=== PATIENT | male | born 1960 | race Caucasian/White ===

== ENCOUNTER 2019-02-08 10:27 | Inpatient (IN) ==
[2019-02-08] MEDS ORDERED: HYDROmorphone INJ 0.5 MG/0.5 ML SYR IV STA (11:20)
[2019-02-08] MEDS ORDERED: SODIUM CHLORIDE 0.9% 1000ML 1,000 ML IV SCH (11:30)
--- NOTE | 2019-02-08 11:32 | Emergency Department Note ---
ED Provider Note CHIEF COMPLAINT: Right leg pain/swelling, low back pain HISTORY OF PRESENTING ILLNESS: This is a 58-year-old male who presents to the emergency department by private vehicle with complaint of low back pain and right leg pain/swelling for the past 2 weeks. Patient states that he has a long-standing history of chronic back pain and previous sciatica, but states his symptoms have been worse over the past 2 weeks. He denies any falls or direct injury to the back or leg. He reports that he was seen at another hospital a week ago for the same symptoms, and was started on prednisone and a muscle relaxer and has also been taking Vicodin for his pain. He states that the pain has gotten progressively worse, now he has so much pain that it is difficult to walk, and he states "I have just been laying around on the couch for days." He states that he has intermittent tingling in the leg, which is chronic, but worse than usual. He denies numbness or weakness of the extremities, saddle paresthesias, or bowel or bladder dysfunction. His feels that his leg has gotten more swollen than usual over the past few days. He denies any chest pain, shortness of breath, dizziness or syncope. He denies any cough, hemoptysis, or URI symptoms. He does report that he has a history of a DVT in his right leg after his back surgery 10 years ago, he is prescribed Xarelto, but he states that his insurance changed and he was no longer able to afford the medication, so he stopped taking this about a month ago. He denies any other symptoms of headaches, vision changes, abdominal pain, urinary complaints, or unusual rash. REVIEW OF SYSTEMS: A complete 10 point review of systems was reviewed with the patient with pertinent positives and negatives as per history of present illness. All else were negative. PAST MEDICAL HISTORY: Degenerative disc disease, lumbar surgery, chronic low back pain, bilateral total knee arthroplasty, hypertension, hyperlipidemia, history of DVT, SRI on CPAP SOCIAL HISTORY: Lives at home with his , denies tobacco use ALLERGIES: No known allergies PHYSICAL EXAM: CONSTITUTIONAL: Pleasant and cooperative. Nontoxic-appearing and in no acute distress, but appears to be uncomfortable and in pain. Obese. HEENT: Normocephalic, atraumatic. PERRL, EOMI. Pharynx normal. NECK: Supple, full active range of motion without discomfort. RESPIRATORY: Diminished in bases, but otherwise clear to auscultation b ilaterally with no wheezing, crackles, rhonchi or stridor. Equal expansion bilaterally. CARDIOVASCULAR: Significantly tachycardic. Regular rhythm with no murmurs, rubs or gallops. Normal peripheral perfusion. Mild edema to the bilateral lower extremities, right greater than left. GASTROINTESTINAL: Soft, nontender, nondistended, obese. No palpable masses or HSM. Bowel sounds present in all quadrants. BACK: Midline tenderness to palpation of the lumbar spine at the L3-S1 level, with right-sided paraspinous muscle tenderness to palpation. No muscle spasm noted. No midline tenderness to palpation of the thoracic spine and no thoracic paraspinous muscle tenderness or spasm. Positive straight leg raise of the right leg for radiculopathy. MUSCULOSKELETAL: Full range of motion of all joints without discomfort. INTEGUMENTARY: No rash or other significant dermatologic conditions noted. NEUROLOGIC: Alert and oriented X 4 with normal affect. 5/5 strength in all 4 extremities. Sensation intact light touch in all 4 extremities. Normal speech. Antalgic gait. ED COURSE AND MEDICAL DECISION MAKING: CC: Patient presenting with complaint of right leg pain/swelling, low back pain DIFFERENTIAL DIAGNOSIS: Includes, but not limited to musculoskeletal pain, muscle spasm, lumbar radiculopathy/sciatica, degenerative disc disease, spinal stenosis, herniated disc, cauda equina syndrome, chronic back pain syndrome, DVT, PE, among others. INTERPRETATION OF LABS: Mild leukocytosis, no anemia, normal platelets, mild hypokalemia, no other significant electrolyte abnormalities, normal renal function, normal liver enzymes. IMAGING: CT angio chest PE protocol CLINICAL HISTORY: 58 years-old Male presenting with tachycardia, leg swelling, history of deep venous thrombosis, clinical concern for pulmonary embolus. TECHNIQUE: Multidetector CT angiography of the chest was performed after administration of intravenous contrast. 3-D volumetric and/or maximum intensity projection (MIP) images were subsequently reconstructed for review. IV contrast: 121 mL of Optiray 320. One or more dose lowering techniques were used consistent with the principles of ALARA (as low as reasonably achievable), including automatic exposure control, mA or kV adjustment to individual patient size, and/or use of iterative reconstruction. COMPARISON: None. CT DOSE (mGy.cm): The estimated cumulative dose is 1519.69. FINDINGS: Human Resources Compensation Analyst topogram: Unremarkable. Pulmonary vasculature: The study is suboptimal for the assessment of the pulmonary vascular tree secondary to timing of the contrast bolus and respiratory motion artifact. Bilateral lower lobe segmental and subsegmental pulmonary emboli primarily in the medial basal and posterior basal segments. Main pulmonary artery is not enlarged. No flattening of the interventricular septum. No intracardiac filling defect. No reflux of contrast into the hepatic veins. Remaining chest: Soft tissues: Normal thyroid and thoracic inlet. No axillary, supraclavicular, mediastinal, or hilar lymphadenopathy. Normal aorta. Mild multichamber enlargement of the heart. Coronary artery calcification. No pericardial or pleural effusion. Well-defined hypodense lesion in the left hepatic lobe, indeterminate though possibly hepatic cyst. Density suggests hepatic steatosis. Lungs and airways: No pneumothorax. Central airways patent. Bronchial wall thickening with a lower lobe predominance present. Pulmonary arteries mildly enlarged relative to adjacent bronchi. Interlobular septal thickening with mosaic attenuation. Patchy added density of the lungs. No focal infiltrate. Musculoskeletal: Degenerative changes of the spine. IMPRESSION: 1. Bilateral lower lobe segmental and subsegmental acute pulmonary emboli without CT evidence of right heart strain. 2. Mild cardiomegaly with findings suggesting volume overload/congestive change. Findings worrisome for developing pulmonary edema. 3. Suspected hepatic steatosis. ----- LUMBAR SPINE CT CT DOSE: 1519.69 mGy.cm HISTORY: right sciatica, h/o lumbar surgery TECHNIQUE: Multiaxial CT images of the lumbar spine were performed and reformatted in the sagittal and coronal plane without the use of contrast. A dose lowering technique was utilized adhering to the principles of ALARA. COMPARISON: None. FINDINGS: Mild superior endplate compression deformity at L3. This is likely old. No evident acute fractures identified within the lumbar spine. Moderate facet degenerative changes throughout the lumbar spine. There is moderate disc space narrowing at L4-L5 and L5-S1. Prior posterior decompression at L5-S1. The sacrum appears intact. Endplate osteophytes seen throughout the lumbar spine. Paraspinal soft tissues are unremarkable. L1-L2: No significant central canal or neural foraminal narrowing. L2-L3: Small broad-based posterior disc bulge with ligamentum and facet hypertrophy resulting in mild central canal and mild bilateral neural foraminal narrowing. L3-L4: Small broad-based posterior disc bulge with ligamentum and facet hypertrophy resulting in mild bilateral neural foraminal narrowing and mild to moderate central canal narrowing. L4-L5: Broad-based posterior disc bulge with ligamentum and facet hypertrophy resulting in moderate central canal and moderate bilateral neural foraminal narrowing. L5-S1: No significant central canal narrowing due to the posterior decompression. There is moderate bilateral neural foraminal narrowing. IMPRESSION: 1. Mild superior endplate compression deformity at L3. This is test age- indeterminate but likely old. No definite acute fractures within the lumbar spine. 2. L5-S1 posterior decompression. 3. Multilevel degenerative changes as described above most pronounced at the L4- L5 level where there is moderate central canal and moderate bilateral neural foraminal narrowing. ----- US venous doppler LE RT CLINICAL HISTORY: 58 years-old Male presenting with swelling, pain, eval DVT. TECHNIQUE: Real-time grayscale and color and spectral Doppler ultrasound imaging of the veins of the right lower extremity was performed. Compression and augmentation were also utilized. COMPARISON: None. FINDINGS: RIGHT: Common femoral vein: Patent. Greater saphenous vein (superficial): Patent. Deep femoral vein: Patent. Femoral vein: Patent. Popliteal vein: Patent. Calf veins: Patent. Other: None. IMPRESSION: No evidence of deep venous thrombosis. EKG: Shows normal sinus rhythm with a rate of 97 bpm, normal axis, normal intervals, left atrial enlargement, no ST or T wave abnormalities, no ectopy by my interpretation. No previous EKG available for comparison. MEDICATION RECONCILIATION: I attest that I have personally reviewed the patient's current medication list. INITIAL VITAL SIGNS REVIEW: I reviewed the patient's initial vital signs and interpret them as follows: T: Afebrile; BP: Hypertensive; HR: Significantly tachycardic; RR: Within normal limits; Pulse Ox: Within normal limits on room air. Blood pressure screening: The patient was found to have an elevated blood pressure and was referred to the inpatient team for further management. MDM SUMMARY: Patient was evaluated at bedside, history and physical exam performed. Patient is alert and oriented, in no acute distress, but appears uncomfortable from pain, laying in the stretcher. Patient is noted to be significantly tachycardic with heart rate in the 140s, and is noted to drop his sats down to 89 to 90% on room air at times. He does come back up to the low 90s with deep breaths. He denies any shortness of breath or chest pain at this time. Patient has midline tenderness of the lower back, radicular pain into the right leg, and positive straight leg raise on the right. No red flag exam findings or history concerning for cauda equina syndrome at this time. Patient has tenderness to palpation of the posterior calf and medial thigh, and appears more swollen compared to the left. Distal pulses intact. EKG reviewed at bedside, noting normal sinus rhythm with no acute ischemic changes or evidence of right heart strain. Orders were placed at bedside for labs, IV placement, IV Dilaudid for pain, IV fluids for hydration, CT lumbar spine to evaluate for back pain, CTA chest to evaluate for PE, given tachycardia and history of DVT, and venous ultrasound of the right lower extremity to evaluate for DVT. Patient discussed with Dr. Andre, who agrees with my assessment, plan, and disposition. Labs and imaging reviewed as above, mild leukocytosis, which may be attributable to recent steroid use. Mild hypokalemia, but no other significant abnormalities. CTA of the chest is positive for bilateral PEs and developing pulmonary edema. CT of the lumbar spine shows multilevel degenerative changes with neuroforaminal narrowing at the L4-L5 level. Venous ultrasound is negative for DVT of the right leg. IV heparin drip was started to manage the bilateral PEs and a transthoracic echo was ordered for further evaluation. [facility], who agrees to evaluate the patient for admission. Patient reassessed multiple times throughout ED stay, he has remained hemod ynamically stable, his tachycardia is downtrending after IV fluids and pain management. He reports that his pain is significantly improved after the IV Dilaudid. The patient and his were updated on all results and plan for admission, they verbalized understanding and he was agreeable to this plan. The patient was stable at time of admission. CRITICAL CARE NOTE: I have personally spent greater than 30 minutes of critical care time in the direct management of this patient. This includes bedside care, interpretation of diagnostic studies, and testing, discussion with consultants, patient, and family members, and other required patient management activities. This 30 minutes is in excess of all separately billable procedures. The chart was completed utilizing [employer] voice recognition software. Grammatical errors, random word insertions, pronoun errors, and incomplete sent ences are an occasional consequence of this system due to software limitations, ambient noise, and hardware issues. Any formal questions or concerns about the content, text, or information contained within the body of this dictation should be directly addressed to the nurse practitioner for clarification. Impression & Plan Bilateral pulmonary embolism, Acute exacerbation of chronic low back pain Past Med/Surg History Medical History HTN (hypertension) (Chronic) HLD (hyperlipidemia) (Chronic) Hx of deep venous thrombosis (Chronic) SRI on CPAP (Chronic) Chronic low back pain (Chronic) DDD (degenerative disc disease) (Chronic) Surgical History History of lumbar surgery (Chronic) History of total knee arthroplasty (Chronic) B/L History of colonoscopy with polypectomy (Chronic) Status post epidural steroid injection (Chronic) Family History Brother Diabetes Father , age 62 Lung cancer Sister Colorectal cancer Other Family history of diabetes mellitus (DM) Social History Preferred Language: Japanese Communication Ability: Effective Beliefs That Will Affect Care: None marital status: Feels Safe at Home: Yes Smoking Status: Never smoker Hx Alcohol Use: Yes Results & Data Vital Signs Vital Signs - 24 hr 02/08/19 10:49 02/08/19 14:06 02/08/19 14:30 Temperature 36.5 C Temperature Source Oral Sepsis Recent Fever Within 48 Hours No Sepsis Action Taken by Nursing No Action Required Pulse Rate 146 H Pulse Rate [Right Finger] 86 82 Respiratory Rate 20 16 18 Respiratory Effort / Characteristics Non-Labored Respiratory Depth Normal Blood Pressure 147/79 H Blood Pressure [Left Arm] 121/70 139/73 Blood Pressure Mean 101 Blood Pressure Mean [Left Arm] 87 95 Pulse Oximetry 93 95 95 Oxygen Delivery Method Room Air Room Air Room Air 02/08/19 16:23 02/08/19 16:44 Temperature 36.5 C 36.5 C Temperature Source Oral Oral Sepsis Recent Fever Within 48 Hours Sepsis Action Taken by Nursing Pulse Rate 82 Pulse Rate [Right Finger] 82 Respiratory Rate 18 18 Respiratory Effort / Characteristics Non-Labored Respiratory Depth Normal Blood Pressure 145/62 H Blood Pressure [Left Arm] 145/62 H Blood Pressure Mean Blood Pressure Mean [Left Arm] 89 Pulse Oximetry 95 95 Oxygen Delivery Method Room Air Room Air Laboratory Data Result diagrams: 02/08/19 11:36 02/08/19 11:36 Lab Results 02/08/19 02/08/19 02/08/19 Range/Units 11:36 11:36 11:39 WBC 12.35 H (4.8-10.8) K/uL RBC 6.22 H (4.7-6.1) M/uL Hgb 17.8 (14.0-18.0) g/dL POC Hgb 18.0 (14.0-18.0) g/dl Hct 51.9 (42-52) % POC Hct 53 H (42-52) % MCV 83.4 (80-100) fL MCH 28.6 (25-34) pg MCHC 34.3 (32-36) g/dL RDW Std Deviation 45.2 (36.4-46.3) fL RDW Coeff of Kayden 14.9 H (11.5-14.5) % Plt Count 194 (130-400) K/uL MPV 10.1 (7.4-10.4) fL Immature Gran % (Auto) 0.6 % Neut % (Auto) 73.8 % Lymph % (Auto) 15.2 % Turner % (Auto) 9.1 % Eos % (Auto) 1.1 % Baso % (Auto) 0.2 % Immature Gran # (Auto) 0.08 H (0.00-0.02) K/uL Neut # (Auto) 9.11 H (1.4-6.5) K/uL Lymph # (Auto) 1.88 (1.2-3.4) K/uL Turner # (Auto) 1.12 H (0.11-0.59) K/uL Eos # (Auto) 0.14 (0-0.5) K/uL Baso # (Auto) 0.02 (0-0.2) K/uL POC Sodium 143 (135-144) mEq/L Sodium 142 (136-145) mmol/L POC Potassium 3.2 L (3.3-5.0) mEq/L Potassium 3.2 L (3.5-5.1) mmol/L POC Chloride 103 (101-112) mEq/L Chloride 108 H (98-107) mmol/L Carbon Dioxide 28 (21-32) mmol/L POC Total CO2 25 (24-31) mEq/l Anion Gap 6.0 (3-11) POC Anion Gap 19.0 (16-25) mmol/L POC BUN 25 H (7-18) mg/dl BUN 28 H (7-18) mg/dl Creatinine 1.06 (0.6-1.4) mg/dl POC Creatinine 1.0 (0.6-1.3) mg/dl Est Cr Clr Drug Dosing Not Reportable Est GFR ( Amer) 90.5 Est GFR (Non-Af Amer) 78.1 BUN/Creatinine Ratio 26.0 H (10-20) Glucose 106 H (70-99) mg/dl POC Glucose (other) 104 H (70-99) mg/dl Calcium 8.8 (8.5-10.1) mg/dl POC Ioniz Calcium Abiel 1.14 (1.12-1.32) mmol/l Total Bilirubin 0.7 (0.2-1) mg/dl AST 8 L (15-37) U/L ALT 30 (12-78) U/L Alkaline Phosphatase 97 (45-117) U/L Total Protein 7.2 (6.4-8.2) gm/dl Albumin 3.5 (3.4-5.0) gm/dl Globulin 3.7 (2.5-4.0) gm/dl Albumin/Globulin Ratio 1.0 (0.9-2) Administered Medications Discontinued Medications Heparin Sodium (Porcine) (Heparin Iv Bolus) Confirm Administered Dose 10,000 units .ROUTE .STK-MED ONE Stop: 02/08/19 14:46 Last Admin: 02/08/19 14:50 Dose: 7,000 units Documented by: [id number] Cosigned by: [id number] Heparin Sodium/Dextrose (Heparin Sodium/Dextrose) Confirm Administered Dose 25,000 units IV .STK-MED ONE Stop: 02/08/19 14:46 Last Admin: 02/08/19 14:51 Dose: 1,500 units Documented by: [id number] Cosigned by: [id number] Hydromorphone HCl (Dilaudid) 0.5 mg IV NOW STA Stop: 02/08/19 11:21 Last Admin: 02/08/19 11:36 Dose: 0.5 mg Documented by: [id number] Sodium Chloride (Nss 1000ml) 1,000 mls @ 100 mls/hr IV .Q10H LUIS Stop: 02/08/19 21:29 Last Admin: 02/08/19 11:53 Dose: 100 mls/hr Documented by: [id number] Ioversol (Optiray 320 125ml) 121 ml IV ONCE PRN PRN Reason: Interaction Checking Stop: 02/12/19 12:04 Last Admin: 02/08/19 12:05 Dose: 121 ml Documented by: [id number] Perflutren Lipid Microsphere (Definity) 2 ml IV ONCE ONE Stop: 02/08/19 15:32 Last Admin: 02/08/19 15:32 Dose: 2 ml Documented by: [id number] Discharge Plan Visit Data *Final* Discharge Date/Time: 02/08/19 16:44 Chief Complaint: Leg Injury/Pain Stated Complaint: PAIN DOWN RIGHT LEG ED Provider: Pascale Andre ED Midlevel Provider: Mickie Bermudez Discharge Problem: Bilateral pulmonary embolism, Acute exacerbation of chronic low back pain Patient Disposition: Admitted As Inpatient Discharge Instructions Interventions: ED Discharge Assessment Last Done: 02/08/19 16:44
[2019-02-08 11:43] LABS: Basophils # (auto) 0.02 K/uL (0-0.2); Basophils % (auto) 0.2 %; Eosinophils # (auto) 0.14 K/uL (0-0.5); Eosinophils % (auto) 1.1 %; Hematocrit (blood only) 51.9 % (42-52); Hemoglobin 17.8 g/dL (14.0-18.0); Immature Granulocytes # (auto) 0.08 K/uL (0.00-0.02); Immature Granulocytes % (auto) 0.6 %; Lymphocytes # (auto) 1.88 K/uL (1.2-3.4); Lymphocytes % (auto) 15.2 %; Mean Corpuscular Hgb Conc 34.3 g/dL (32-36); Mean Corpuscular Volume 83.4 fL (80-100); Mean Platelet Volume 10.1 fL (7.4-10.4); Monocytes # (auto) 1.12 K/uL (0.11-0.59); Monocytes % (auto) 9.1 %; Neutrophils # (auto) 9.11 K/uL (1.4-6.5); Neutrophils % (auto) 73.8 %; Platelet Count 194 K/uL (130-400); RDW Coefficient of Variation 14.9 % (11.5-14.5); RDW Standard Deviation 45.2 fL (36.4-46.3); Red Blood Count 6.22 M/uL (4.7-6.1); White Blood Count 12.35 K/uL (4.8-10.8)
[2019-02-08 11:52] LABS: iSTAT Ionized Calcium 1.14 mmol/l (1.12-1.32); iSTAT Potassium 3.2 mEq/L (3.3-5.0)
[2019-02-08 12:05] LABS: Alanine Aminotransferase 30 U/L (12-78); Albumin Level 3.5 gm/dl (3.4-5.0); Aspartate Aminotransferase 8 U/L (15-37); Blood Urea Nitrogen 28 mg/dl (7-18); Calcium 8.8 mg/dl (8.5-10.1); Carbon Dioxide 28 mmol/L (21-32); Chloride 108 mmol/L (98-107); Est GFR (African American) 90.5; Est GFR (Non-African American) 78.1; Glucose 106 mg/dl (70-99); Potassium 3.2 mmol/L (3.5-5.1); Sodium 142 mmol/L (136-145)
[2019-02-08] MEDS ORDERED: OPTIRAY 320 125ml IV PRN (12:05)
[2019-02-08 12:07] LABS: Alkaline Phosphatase 97 U/L (45-117); Bilirubin,Total 0.7 mg/dl (0.2-1); Globulin 3.7 gm/dl (2.5-4.0); Total Protein 7.2 gm/dl (6.4-8.2)
--- NOTE | 2019-02-08 12:27 | CT Scan Report ---
LUMBAR SPINE CT CT DOSE: 1519.69 mGy.cm HISTORY: right sciatica, h/o lumbar surgery TECHNIQUE: Multiaxial CT images of the lumbar spine were performed and reformatted in the sagittal an d coronal plane without the use of contrast. A dose lowering technique was utilized adhering to the principles of ALARA. COMPARISON: None. FINDINGS: Mild superior endplate compression deformity at L3. This is likely old. No evident acute fr actures identified within the lumbar spine. Moderate facet degenerative changes throughout the lumbar spine. There is moderate disc space narrowing at L4-L5 and L5-S1. Prior posterior decompression at L 5-S1. The sacrum appears intact. Endplate osteophytes seen throughout the lumbar spine. Paraspinal so ft tissues are unremarkable. L1-L2: No significant central canal or neural foraminal narrowing. L2-L3: Small broad-based posterior disc bulge with ligamentum and facet hypertrophy resulting in mild central canal and mild bilateral neural foraminal narrowing. L3-L4: Small broad-based posterior disc bulge with ligamentum and facet hypertrophy resulting in mild bilateral neural foraminal narrowing and mild to moderate central canal narrowing. L4-L5: Broad-based posterior disc bulge with ligamentum and facet hypertrophy resulting in moderate c entral canal and moderate bilateral neural foraminal narrowing. L5-S1: No significant central canal narrowing due to the posterior decompression. There is moderate b ilateral neural foraminal narrowing. IMPRESSION: 1. Mild superior endplate compression deformity at L3. This is test age-indeterminate but likely old. No definite acute fractures within the lumbar spine. 2. L5-S1 posterior decompression. 3. Multilevel degenerative changes as described above most pronounced at the L4-L5 level where there is moderate central canal and moderate bilateral neural foraminal narrowing. Electronically signed by: Varghese Francisco M.D. 02/08/2019 12:26 PM
--- NOTE | 2019-02-08 12:28 | CT Scan Report ---
CT angio chest PE protocol CLINICAL HISTORY: 58 years-old Male presenting with tachycardia, leg swelling, history of deep venous thrombosis, clinical concern for pulmonary embolus. TECHNIQUE: Multidetector CT angiography of the chest was performed after administration of intravenou s contrast. 3-D volumetric and/or maximum intensity projection (MIP) images were subsequently reconst ructed for review. IV contrast: 121 mL of Optiray 320. One or more dose lowering techniques were used consistent with the principles of ALARA (as low as reasonably achievable), including automatic expos ure control, mA or kV adjustment to individual patient size, and/or use of iterative reconstruction. COMPARISON: None. CT DOSE (mGy.cm): The estimated cumulative dose is 1519.69. FINDINGS: Lead Software Engineer topogram: Unremarkable. Pulmonary vasculature: The study is suboptimal for the assessment of the pulmonary vascular tree secondary to timing of the contrast bolus and respiratory motion artifact. Bilateral lower lobe segmental and subsegmental pulmo nary emboli primarily in the medial basal and posterior basal segments. Main pulmonary artery is not enlarged. No flattening of the interventricular septum. No intracardiac filling defect. No reflux of contrast into the hepatic veins. Remaining chest: Soft tissues: Normal thyroid and thoracic inlet. No axillary, supraclavicular, mediastinal, or hilar lymphadenopathy. Normal aorta. Mild multichamber enlargement of the heart. Coronary artery calcificat ion. No pericardial or pleural effusion. Well-defined hypodense lesion in the left hepatic lobe, inde terminate though possibly hepatic cyst. Density suggests hepatic steatosis. Lungs and airways: No pneumothorax. Central airways patent. Bronchial wall thickening with a lower lo be predominance present. Pulmonary arteries mildly enlarged relative to adjacent bronchi. Interlobula r septal thickening with mosaic attenuation. Patchy added density of the lungs. No focal infiltrate. Musculoskeletal: Degenerative changes of the spine. IMPRESSION: 1. Bilateral lower lobe segmental and subsegmental acute pulmonary emboli without CT evidence of rig ht heart strain. 2. Mild cardiomegaly with findings suggesting volume overload/congestive change. Findings worrisome for developing pulmonary edema. 3. Suspected hepatic steatosis. The report will be called/faxed according to standard departmental protocol. Electronically signed by: Fabrizio Romeo M.D. 02/08/2019 12:27 PM
--- NOTE | 2019-02-08 13:04 | Ultrasound Report ---
US venous doppler LE RT CLINICAL HISTORY: 58 years-old Male presenting with swelling, pain, eval DVT. TECHNIQUE: Real-time grayscale and color and spectral Doppler ultrasound imaging of the veins of the right lower extremity was performed. Compression and augmentation were also utilized. COMPARISON: None. FINDINGS: RIGHT: Common femoral vein: Patent. Greater saphenous vein (superficial): Patent. Deep femoral vein: Patent. Femoral vein: Patent. Popliteal vein: Patent. Calf veins: Patent. Other: None. IMPRESSION: No evidence of deep venous thrombosis. Electronically signed by: Fabrizio Romeo M.D. 02/08/2019 1:03 PM
[2019-02-08] MEDS ORDERED: HEPARIN SOD (PORCINE) 1000 UNIT/ML 10 ML VIAL ONE (14:45)
[2019-02-08] MEDS ORDERED: HEPARIN 25000 UNIT/500 ML D5W IV ONE (14:45)
--- NOTE | 2019-02-08 15:25 | History & Physical Report ---
Date of Service February 08, 2019 Assessment & Plan (1) Bilateral pulmonary embolism: This is a 58 year old male with significant pmh of DVT/PE previously treated with xarelto but discontinued by pt due to cost 1.5 mo ago, HTN, HLD, SRI on CPAP, chronic low back pain due to DDD who presents to [facility] ED secondary to low back pain x 2 weeks. Upon initial evaluation patient was tachycardic and O2 sats low 90s. Given stopping xarelto it prompted a CTA which noted b/l segmental and subsegmental PE. He was initiated on IV heparin bolus/gtt Echo was performed EF preserved w/o evidence of heart strain -admit pt to med/surg tele -continue IV Heparin -consult case management to determine alternative anticoagulants pricing; pt was noncompliant with coumadin -tx for low back pain as below (2) Acute exacerbation of chronic low back pain: -primary complaint is a/c low back pain -pt with hx of DDD lumbar spine, hx of lumbar surgery l5-S1 posterior decompression 10 yrs ago -Multilevel degenerative changes as described above most pronounced at the L4-L5 level where there is moderate central canal and moderate bilateral neural foraminal narrowing. -failed outpatient conservative management with muscle relaxants, steroids, opiates, gabapentin -consult PT -consult Ortho Spine for further evaluation and management -MRI of lumbar spine -Ultram 50mg q6hr for pain; along with Dilaudid 0.5mg IV q2hr prn severe pain (3) DDD (degenerative disc disease): -plan as above (4) Hypokalemia: -replete with 40meq x 1 now -repeat bmp in a.m. (5) Leucocytosis: -wbc 12.3k, likely secondary to recent steroid use vs PE -no s/sx of active infection -mri ordered for a/c lbp (6) HTN (hypertension): -continue amlodipine, lisinopril-hctz -blood pressure controlled (7) HLD (hyperlipidemia): -continue statin (8) SRI on CPAP: -cpap at HS (9) DVT prophylaxis: -IV heparin given b/l PE -will need to determine buttermaker plan for anticoagulation Disposition: D/C to home when able Follow up: PCP Brea Dunn upon discharge Patient was seen in collaboration with Dr. Waller, please see addendum Starting 02/09/19 patient will be followed by Dr. Ramirez History of Present Illness Chief Complaint: Low Back pain x 2 weeks. Primary Care Provider: Brea Dunn This is a 58 year old male with significant pmh of DVT/PE previously treated with xarelto but discontinued by pt due to cost 1.5 mo ago, HTN, HLD, SRI on CPAP, chronic low back pain due to DDD who presents to [facility] ED secondary to low back pain x 2 weeks. and son at bedside. Pt initially seen in [facility] ED 01/29/19 due to pain. He was given dilaudid, percocet, flexeril. CT imaging revealed spinal stenosis with chronic DDD. He was discharged home. Followed up with PCP on 01/31 still experiencing significant pain in which ortho referral was made, given Medrol 40mg IM and placed on prednisone taper. Also of note at that visit was he discontinued his xarelto approx 1.5mo ago due to cost. Appears he had been noncompliant with coumadin in past as well. Initially dx with DVT post op lumbar surgery back in 2008 and has been anticoagulated ever since. Denies hx of hypercoagulable state, family hx or work up. Presents to ED today due to severe low back pain with radiculopathy to RLE. Pain initially started 2 weeks ago while standing in shower. Developed sharp, stabbing pain to right side low back that radiates down buttock and to anterior lower extremity, constant but waxes and wanes in severity, made worse with walking and movement, improved with lying on side. Minimal improvement with steroids, no improvement with hydrocodone. Denies numbess or tingling or loss of bowel or bladder. Denies recent illness, f/c/s, chest pain, sob, christina, hemoptysis, n/v/d, change in bowel or bladder habits. Initially hurt low back in 2008 when he had 3 square bails of hay and fork fall on him. This resulted in a lumbar spinal surgery, "I had L5 removed down in [place]." Had flare approx 2 years ago in which he was seen by Dr. Jose who recommended surgery at the time. Patient opted to continue non surgical treatment at that time. He has had numerous epidural injections which have alleviated symptoms, last in 08/2017. Allergies Allergy/AdvReac Type Severity Reaction Status Date / Time No Known Allergies Allergy Unverified 02/08/19 12:33 Home Medications Home Medications Medication Instructions Recorded Confirmed Type amlodipine 10 mg PO PM 02/08/19 02/08/19 History atorvastatin 20 mg PO PM 02/08/19 02/08/19 History celecoxib 200 mg PO BIDM 02/08/19 02/08/19 History gabapentin 300 mg PO TID 02/08/19 02/08/19 History lisinopril-hydrochlorothiazide 1 tab PO PM 02/08/19 02/08/19 History naproxen sodium [Aleve] 440 mg PO BID PRN 02/08/19 02/08/19 History prednisone 20 mg PO .TAPER DOSE 02/08/19 02/08/19 History Past Med/Surg History Medical History HTN (hypertension) (Chronic) HLD (hyperlipidemia) (Chronic) Hx of deep venous thrombosis (Chronic) SRI on CPAP (Chronic) Chronic low back pain (Chronic) DDD (degenerative disc disease) (Chronic) Surgical History History of lumbar surgery (Chronic) History of total knee arthroplasty (Chronic) B/L History of colonoscopy with polypectomy (Chronic) Status post epidural steroid injection (Chronic) Family History Brother Diabetes Father , age 62 Lung cancer Sister Colorectal cancer Other Family history of diabetes mellitus (DM) Social History Preferred Language: Indonesian Communication Ability: Effective Beliefs That Will Affect Care: None marital status: Feels Safe at Home: Yes Smoking Status: Never smoker Hx Alcohol Use: Yes Review of Systems All systems reviewed & are unremarkable except as noted in HPI & below Physical Exam Vital Signs (Past 24 Hours): Last Vital Signs Temp 36.5 C 02/08/19 10:49 Pulse 82 02/08/19 14:30 Resp 18 02/08/19 14:30 BP 139/73 02/08/19 14:30 Pulse Ox 95 02/08/19 14:30 Physical Exam: Gen: WD/WN, Morbidly Obese M, NAD, sitting up in bed, pleasant, conversing easily Head: Normocephalic, Atraumatic Eyes: Sclera normal, no conjunctival injection, PERRLA, EOMI ENT: Gross hearing intact, normal pharynx, mucous membranes moist Neck: supple, no adenopathy, No JVD, no bruit, Resp: Clear to auscultation b/l, no wheeze, rales, rhonchi. Normal insp/exp effort, no accessory muscle use CV: Regular rate, regular rhythm, no murmur, rub, gallop, or ectopy Abd:Protuberant abdomen +BS x 4, soft, nontender, nondistended Musculoskeletal: moves extremities active rom x 4, Pain with RLE movement, +SLR, painful palpation to R SI joint and into buttock, strength intact, good single resource boss strength Extremities: No edema bilaterally Skin: warm, moist, no rash, negative turgor, cap refill < 2sec Neuro: Alert and oriented x 3, speech normal, good mood/affect, cran nerve 2-12 intact grossly : deferred Results & Data Laboratory Results Short CBC 02/08/19 Range/Units 11:36 WBC 12.35 H (4.8-10.8) K/uL Hgb 17.8 (14.0-18.0) g/dL Hct 51.9 (42-52) % Plt Count 194 (130-400) K/uL BMP 02/08/19 11:36 Sodium 142 Potassium 3.2 L Chloride 108 H Carbon Dioxide 28 BUN 28 H Creatinine 1.06 Glucose 106 H Calcium 8.8 Liver Function 02/08/19 Range/Units 11:36 Total Bilirubin 0.7 (0.2-1) mg/dl AST 8 L (15-37) U/L ALT 30 (12-78) U/L Alkaline Phosphatase 97 (45-117) U/L Albumin 3.5 (3.4-5.0) gm/dl Diagnostic Findings Venous Doppler Study: IMPRESSION: No evidence of deep venous thrombosis. Lumbar CT: Chest CTA: IMPRESSION: 1. Bilateral lower lobe segmental and subsegmental acute pulmonary emboli without CT evidence of right heart strain. 2. Mild cardiomegaly with findings suggesting volume overload/congestive change. Findings worrisome for developing pulmonary edema. 3. Suspected hepatic steatosis. Lumbar Spine CT: L1-L2: No significant central canal or neural foraminal narrowing. L2-L3: Small broad-based posterior disc bulge with ligamentum and facet hypertrophy resulting in mild central canal and mild bilateral neural foraminal narrowing. L3-L4: Small broad-based posterior disc bulge with ligamentum and facet hypertrophy resulting in mild bilateral neural foraminal narrowing and mild to moderate central canal narrowing. L4-L5: Broad-based posterior disc bulge with ligamentum and facet hypertrophy resulting in moderate central canal and moderate bilateral neural foraminal narrowing. L5-S1: No significant central canal narrowing due to the posterior decompression. There is moderate bilateral neural foraminal narrowing. IMPRESSION: 1. Mild superior endplate compression deformity at L3. This is test age-indet erminate but likely old. No definite acute fractures within the lumbar spine. 2. L5-S1 posterior decompression. 3. Multilevel degenerative changes as described above most pronounced at the L4- L5 level where there is moderate central canal and moderate bilateral neural foraminal narrowing. Echo EF 60-65%, Grade 1 DD, mild av sclerosis ECG Rate (beats per minute): 97 Rhythm: normal sinus Code Status & VTE Plan Code Status Full Code VTE Prophylaxis Plan VTE Prophylaxis will be ordered: Yes Supervising Physician Co-Signing Physician Notes Attending addendum: The patient was seen and examined in the emergency room in presence of the He is a 58 year old Obese male with significant pmh of DVT/PE previously treated with xarelto but discontinued by pt due to cost 1.5 mo ago, HTN, HLD, SRI on CPAP, chronic low back pain due to DDD who presents to [facility] ED secondary to low back pain x 2 weeks. Complains to have ongoing lower back pain on the right side with radiation of the pain down to the right leg up to the heel Denies any problem with urine in the bowel habit Pain and symptoms are worse with movement Denies any shortness of breath and/or palpitation and noted to have bilateral pulmonary embolism On examination Moderate distress at rest due to back pain Otherwise hemodynamically stable Chest-clear to auscultate bilaterally Heart-S1-S2 regular Abdomen-benign Examination of musculoskeletal system-localized tenderness nor lumbar and upper sacral area on the right side No acute arthritis DOWEL POINTER-alert, awake and oriented x3 Impaired sensation right leg L5 distribution Admission labs and imaging studies reviewed Has bilateral pulmonary embolism secondary to not continue Xarelto Has acute on chronic low back pain with L5/S1 distribution radiculopathy Agree with assessment and plan as outlined above by Luann Waller (1) HLD (hyperlipidemia) Hyperlipidemia type: unspecified Qualified Code(s): E78.5 - Hyperlipidemia, unspecified (2) Leucocytosis Leukocytosis type: unspecified Qualified Code(s): D72.829 - Elevated white b lood cell count, unspecified (3) DDD (degenerative disc disease) Spinal region: lumbar Qualified Code(s): M51.36 - Other intervertebral disc degeneration, lumbar region (4) HTN (hypertension) Hypertension type: essential hypertension Qualified Code(s): I10 - Essential (primary) hypertension
[2019-02-08] MEDS ORDERED: HEPARIN IV BOLUS 7,000 UNITS in SYRINGE 0 ML IV ONE ×2 (15:30→23:45)
[2019-02-08] MEDS ORDERED: PERFLUTREN LIPID MICROSPHERE (DEFINITY) IV ONE (15:31)
[2019-02-08] MEDS ORDERED: POTASSIUM CHLORIDE 20 MEQ TABCR PO STA ×2 (16:31→18:07)
[2019-02-08] MEDS ORDERED: ACETAMINOPHEN 325 MG TAB PO PRN (17:10)
[2019-02-08] MEDS ORDERED: POLYETHYLENE (MIRALAX) 17 GM PACK PO PRN (17:10)
[2019-02-08] MEDS ORDERED: ALUMINUM/MAGNESIUM SUSP 30 ML UDC PO PRN (17:10)
[2019-02-08] MEDS ORDERED: ONDANSETRON INJ 2 MG/ML 2 ML VIAL IV PRN (17:10)
[2019-02-08] MEDS ORDERED: TRAMADOL HCL 50 MG TABLET ONE (17:24)
[2019-02-08 18:01] LABS: Partial Thromboplastin Ratio 0.8; Partial Thromboplastin Time 22.1 Seconds (21.0-31.0); Prothrombin Time 10.6 Seconds (9.0-12.0)
[2019-02-08] MEDS: HYDROmorphone INJ 0.5 MG/0.5 ML SYR IV PRN (18:26)
[2019-02-08 18:29] LABS: Appearance Urine Clear (Clear); Bilirubin Urine Negative (Negative); Blood Urine Negative (Negative); Color Urine Dark Yellow; Glucose Urine UA Negative (Negative); Ketones Urine Negative (Negative); Leukocyte Esterase Urine Negative (Negative); Nitrite Urine Negative (Negative); Protein Urine Negative (Negative); Specific Gravity Urine > 1.045 (1.000-1.030); Urobilinogen Urine Negative (Negative); pH Urine 5.5 (4.5-7.5)
[2019-02-08] MEDS: TRAMADOL HCL 50 MG TABLET PO SCH ×2 (18:32→23:38)
[2019-02-08] MEDS: HEPARIN STANDARD DEXTROSE 25,000 UNITS/500 ML IV SCH (18:42)
--- NOTE | 2019-02-08 20:52 | Magnetic Resonance Report ---
MR lumbar spine wo con CLINICAL HISTORY: acute on chronic low back pain TECHNIQUE: Sagittal and axial T1, T2 and STIR images were obtained. COMPARISON STUDY: CT scan dated 02/08/2019 OBSERVATIONS: The vertebral bodies and posterior elements appear intact. There is no abnormal bony signal present t o suggest a marrow replacement process. There are no findings to indicate acute fracture. There are o ld mild L2 and L3 compression deformities. L1-2: There is a mild circumferential disc bulge. There is no significant spinal or foraminal stenosi s L2-3: There is a right-sided extruded disc herniation which fills the right lateral recess and likely impinges on the right L3 nerve root. The disc herniation measures approximately 9 mm. L3-4: There is a circumferential disc bulge and mild spinal stenosis. L4-5: There is a circumferential disc bulge. There is minor spinal canal narrowing. There is facet kostas int arthropathy. There is moderate bilateral foraminal stenosis more severe on the left. Addition the re is mild to moderate spinal canal narrowing. L5-S1: There are postsurgical changes of a posterior laminectomy. There is a circumferential disc bul ge. There is facet joint arthropathy. There is minor spinal canal narrowing.. There is mild bilateral foraminal narrowing. The conus medullaris and cauda equina appear normal. IMPRESSION: 1. Moderate multilevel spondylitic change. 2. The study is most significant for a right-sided extruded disc herniation at the L2-3 level. Disc m aterial fills the right lateral recess and likely impinges on the right L3 nerve root. Electronically signed by: Mao Lambert M.D. 02/08/2019 8:51 PM
[2019-02-08] MEDS: LISINOPRIL/HCTZ 20/25MG 1 TAB PO SCH (21:12)
[2019-02-08] MEDS: ATORVASTATIN 20 MG TAB PO SCH (21:12)
[2019-02-08] MEDS: AMLODIPINE BESYLATE 5 MG TAB PO SCH (21:12)
[2019-02-08] MEDS: GABAPENTIN 300 MG CAP PO SCH (21:12)
[2019-02-08 23:30] LABS: Partial Thromboplastin Ratio 1.5; Partial Thromboplastin Time 39.7 Seconds (21.0-31.0)
[2019-02-09] MEDS: HYDROmorphone INJ 0.5 MG/0.5 ML SYR IV PRN ×4 (00:02→19:59)
[2019-02-09] MEDS: TRAMADOL HCL 50 MG TABLET PO SCH ×2 (04:18→11:20)
[2019-02-09] MEDS: HEPARIN STANDARD DEXTROSE 25,000 UNITS/500 ML IV SCH ×2 (04:19→19:58)
[2019-02-09 06:27] LABS: Hematocrit (blood only) 49.6 % (42-52); Hemoglobin 16.7 g/dL (14.0-18.0); Mean Corpuscular Hgb Conc 33.7 g/dL (32-36); Mean Corpuscular Volume 83.9 fL (80-100); Mean Platelet Volume 9.7 fL (7.4-10.4); Platelet Count 182 K/uL (130-400); RDW Coefficient of Variation 14.9 % (11.5-14.5); RDW Standard Deviation 45.4 fL (36.4-46.3); Red Blood Count 5.91 M/uL (4.7-6.1); White Blood Count 10.36 K/uL (4.8-10.8)
[2019-02-09 06:49] LABS: Partial Thromboplastin Ratio 3.3
[2019-02-09 07:01] LABS: Partial Thromboplastin Time 90.2 Seconds (21.0-31.0)
[2019-02-09 07:05] LABS: BUN Creatinine Ratio 23.4 (10-20); Calcium 7.9 mg/dl (8.5-10.1); Creatinine Clr Calc Pharmacy 136.8 ml/min; Est GFR (African American) 108.8; Est GFR (Non-African American) 93.9; Potassium 3.3 mmol/L (3.5-5.1)
[2019-02-09] MEDS: GABAPENTIN 300 MG CAP PO SCH ×3 (07:45→20:01)
[2019-02-09] MEDS: POTASSIUM CHLORIDE 20 MEQ TABCR PO SCH ×2 (09:36→16:28)
--- NOTE | 2019-02-09 13:11 | Consultation Report ---
DATE OF CONSULTATION: 02/09/2019 CHIEF COMPLAINT: Back and lower extremity difficulty. HISTORY OF PRESENT ILLNESS: Gary is a delightful fellow. He is 58, overweight at 330 pounds. He has multiple other medical issues including hypertension and COPD. He has had chronic low back pain, lower extremity difficulty, degenerative changes and now herniations, lumbar spine. He generally can take care of it moderately so as an outpatient. At this time, he got significant ____ make a trip to the Emergency Room, I believe in [place] first and then transferred here. He saw Dr. Jose's associate, physician automobile mechanic assistant about a year and a half ago and surgery was recommended he try to put it off for an assortment of reasons and he is here today, I am on primary spine call. PAST MEDICAL HISTORY: Positive for hypokalemia, hypertension, hyperlipidemia, obesity. PAST SURGICAL HISTORY: He did have remote surgery of lumbar spine in [place] several years ago, I believe a decade ago. ALLERGIES: None. MEDICATIONS: Lipitor, Celebrex, gabapentin, lisinopril, prednisone. REVIEW OF SYSTEMS: He denies any blurred vision, double vision, tinnitus or vertigo. Denies any chest pain, palpitations. OBJECTIVE: VITAL SIGNS: Temperature 36.5, pulse 82, respirations 18. GENERAL: Alert, oriented. Mentation normal. NECK: Supple. LUNGS: Clear to auscultation. No rales, rhonchi or wheezing. ABDOMEN: Soft, nontender. EXTREMITIES: Intact. MUSCULOSKELETAL: He has no weakness and reflex examination is normal. His MRI scan was reviewed in detail, I looked at the pictures, I looked a report. He has moderate changes at multiple levels, fairly significant at L2-L3, L3-L4, L4-L5. He has a herniation, I believe at the L2-L3 level, possibly L3-L4 level. He has stenosis as well. No gross instability such as spondylolisthesis or scoliosis. ASSESSMENT: Delightful gentleman, 58, complex spine problem which is the primary reason for his admission. PLAN: Includes a medical management. I think we can control this, medically get him home as an outpatient. He expressed interest in seeing Dr. Jose since he had contacted at our office in the past. I told the patient not be getting hold Dr. Jose sometime today or tomorrow, Dr. Jose may or may not able to take over his care. There is nothing urgent here in this situation. He may be a candidate for an epidural steroid injection to get him over the tough part here. I recommended Toradol, as always good methylprednisolone, gabapentin. In general, we can control the pain.
--- NOTE | 2019-02-09 13:35 | Hospitalist Progress Note ---
Date of Service February 09, 2019 Assessment & Plan (1) Bilateral pulmonary embolism: History of Xarelto since 2008 for a treatment of DVT/PE. This was discontinued secondary to cost 1.5 months ago and he subsequently was seen to have acute bilateral subsegmental PE on workup in the ER. He has not had a hypercoagulable workup or seen hematology. We will discussed the case with them to see if they can offer any thoughts. He does have a strong family history which may warrant further workup. For now anticoagulation will be between Coumadin versus Xarelto secondary to insurance and cost. Case management is already working on this and trying to get a drug coupon passed through his insu carole for Xarelto. He is not having symptoms and is not requiring oxygen at this point. Continue heparin drip for now. Of note echo was performed with a preserved EF and no evidence of heart strain. (2) Acute exacerbation of chronic low back pain: The patient has a history of lumbar spinal surgery including an L5-S1 posterior decompression approximately 10 years ago. He had a traumatic back injury approximately 2 years ago which likely resulted in his current disc herniation with impingement on the nerve root. He has had multiple flares throughout the past 2 years and was scheduled to go to surgery with Dr. Jose, however could not do this secondary to taking care of his elderly mother. He continues on Celebrex twice daily and has recently taken Advil twice daily on top of this at home. His pain is currently controlled with pain medications. Standing up and walking around makes this worse and he describes the pain as a charley horse course. We will try some Valium to see if this helps as this is not additional blood thinner on top of the heparin. Will start with 2 mg dose now and if it is not effective will try a 5 mg dose. Will await ortho spine definitive recommendations. (3) Hypokalemia: Replace and repeat in a.m. (4) HTN (hypertension): Controlled on home amlodipine and lisinopril-HCTZ. (5) SRI on CPAP: Cpap at HS (6) DVT prophylaxis: Heparin drip Full code Dispo-DC home when able. Rachana Ramirez DO [facility] Hospitalist Subjective 58-year-old man with a history of extensive right lower extremity DVT in 2008 associated with pulmonary embolus. This occurred 6 months after a surgery. He presents again after stopping anticoagulation, Xarelto, 1 month ago secondary to financial burden and insurance issues. He came in for right lower extremity painAn ultrasound was performed of the right leg which was negative for DVT, however, a chest CTA was positive for bilateral lower lobe segmental and subsegmental acute pulmonary emboli without evidence of right heart strain. There is an ongoing discussion based on insurance needs regarding continuation of Xarelto at this point which he was on or switching to Coumadin which may be better financially. We will continue to discuss with case management and the family. He additionally had a lumbar spine CT performed revealing endplate compression deformity at L3 which looked old as well as multilevel degenerative changes with central canal and bilateral neural foraminal narrowing. A lumbar MRI was performed revealing a right-sided extruded disc herniation at the L2-3 level with impingement on the right L3 nerve root. The patient reports he was going to do surgery with Dr. Jose at approximate 2 years ago after a traumatic back injury which likely caused to this however, surgery was not ideal at that time as he was taking care of his elderly mother. He had subsequent successive flares of his right lower extremity pain, and this began again 3 weeks ago. He reports going to [place] and got pain medications which lasted for 3 days but did work. He otherwise used [id number] ibuprofen 2 tabs twice daily in addition to his chronic twice daily Celebrex which she has taken for years for arthritis. He does have a significant family history of blood clots with his grandfather and mother both being affected with them. He has never seen a family and marriage counsellor to date and hypercoagulable workup is uncertain at this time. He reports having some persistent right lower extremity pain that is better with lying on his left side in bed, and he reports being in this position for the past 3 weeks. He states getting up and walking around causes some numbness to his leg as well as significant pain. He was evaluated by Dr. Stevens this morning. He is otherwise eating, denies chest pain, denies shortness of breath and is not requiring oxygen at this time. Physical Exam Vital Signs (Past 24 Hours): Last Vital Signs Temp 36.9 C 02/09/19 11:29 Pulse 76 02/09/19 11:29 Resp 20 02/09/19 11:29 BP 124/73 02/09/19 11:29 Pulse Ox 95 02/09/19 11:29 CONSTITUTIONAL: obese, vitals as above, in mild-moderate distress EYES: normal conjuctivae, no scleral icterus ENT: MMM RESPIRATORY: clear to auscultation bilaterally, no crackles, rales or wheezes, normal respiratory effort CARDIOVASCULAR: regular rate and rhythm, S1 and 2 heard without murmurs, gallops or rubs, no JVD, no peripheral edema GASTROINTESTINAL: normal bowel sounds, soft, nontender, nondistended MUSCULOSKELETAL: strength 5/5 throughout, head is normocephalic and atraumatic, normal range of motion of lower extremities. Positive SLR right leg greater than left. The process of lifting both legs passively while patient was supine also provoked radiculopathy worse on the right leg. He has point tenderness in his right buttock around the ischial spine area. There is no SI joint pain or greater trochanteric bursa pain. SKIN: warm and dry NEUROLOGIC: CN 2-12 grossly intact, no sensory deficit, normal cognition PSYCHIATRIC: alert cooperative and oriented to person, place and time. Results & Data Laboratory Results Short CBC 02/09/19 Range/Units 06:14 WBC 10.36 (4.8-10.8) K/uL Hgb 16.7 (14.0-18.0) g/dL Hct 49.6 (42-52) % Plt Count 182 (130-400) K/uL BMP 02/09/19 06:14 Sodium 139 Potassium 3.3 L Chloride 106 Carbon Dioxide 27 BUN 21 H Creatinine 0.91 Glucose 100 H Calcium 7.9 L Urine 02/08/19 Range/Units 18:20 Urine Color Dark Yellow Urine Appearance Clear (Clear) Urine pH 5.5 (4.5-7.5) Ur Specific [place] > 1.045 H (1.000-1.030) Urine Protein Negative (Negative) Urine Glucose (UA) Negative (Negative) (1) HTN (hypertension) Hypertension type: essential hypertension Qualified Code(s): I10 - Essential (primary) hypertension
[2019-02-09] MEDS ORDERED: diazePAM 2 MG TABLET PO ONE (13:50)
[2019-02-09] MEDS ORDERED: diazePAM 2 MG TABLET PO PRN (13:50)
[2019-02-09 14:01] LABS: Partial Thromboplastin Ratio 1.8
[2019-02-09] MEDS ORDERED: HYDROmorphone INJ 0.5 MG/0.5 ML SYR IV STA (16:14)
[2019-02-09] MEDS: ACETAMINOPHEN 500 MG TAB PO SCH (17:46)
[2019-02-09] MEDS: TRAMADOL HCL 50 MG TABLET PO PRN (17:47)
[2019-02-09] MEDS: ATORVASTATIN 20 MG TAB PO SCH (20:01)
[2019-02-09] MEDS: AMLODIPINE BESYLATE 5 MG TAB PO SCH (20:01)
[2019-02-09] MEDS: LISINOPRIL/HCTZ 20/25MG 1 TAB PO SCH (20:02)
[2019-02-09] MEDS: diazePAM 5 MG TABLET PO PRN (22:03)
[2019-02-10] MEDS: ACETAMINOPHEN 500 MG TAB PO SCH ×3 (01:02→17:54)
[2019-02-10 07:30] LABS: Hematocrit (blood only) 47.5 % (42-52); Hemoglobin 16.1 g/dL (14.0-18.0); Mean Corpuscular Hgb Conc 33.9 g/dL (32-36); Mean Corpuscular Volume 84.2 fL (80-100); Mean Platelet Volume 10.2 fL (7.4-10.4); Platelet Count 163 K/uL (130-400); RDW Coefficient of Variation 14.8 % (11.5-14.5); RDW Standard Deviation 45.6 fL (36.4-46.3); Red Blood Count 5.64 M/uL (4.7-6.1); White Blood Count 8.53 K/uL (4.8-10.8)
[2019-02-10] MEDS: HYDROmorphone INJ 0.5 MG/0.5 ML SYR IV PRN ×2 (07:48→17:59)
[2019-02-10] MEDS: GABAPENTIN 300 MG CAP PO SCH ×3 (07:48→21:07)
[2019-02-10 08:01] LABS: Partial Thromboplastin Ratio 1.8
[2019-02-10 08:22] LABS: BUN Creatinine Ratio 20.6 (10-20); Calcium 8.3 mg/dl (8.5-10.1); Creatinine Clr Calc Pharmacy 146.8 ml/min; Est GFR (African American) 113.4; Est GFR (Non-African American) 97.9; Magnesium 2.2 mg/dl (1.8-2.4); Potassium 3.8 mmol/L (3.5-5.1)
[2019-02-10 09:06] LABS: Partial Thromboplastin Time 48.6 Seconds (21.0-31.0)
[2019-02-10] MEDS ORDERED: methylPREDNISolone 4 MG TAB, 6 DAY TAPER PO SCH (09:30)
[2019-02-10] MEDS: HEPARIN STANDARD DEXTROSE 25,000 UNITS/500 ML IV SCH ×2 (10:09→23:51)
[2019-02-10] MEDS: methylPREDNISolone 4 MG TAB PO SCH ×4 (11:30→21:08)
--- NOTE | 2019-02-10 11:42 | Orthopedic Consultation ---
Date of Consultation February 10, 2019 Assessment & Plan (1) Lumbar disc herniation with radiculopathy: A long discussion with this patient reviewing his MRI findings and clinical course. He does present with significant advanced arthrosis involving the L4 551 level with bilateral neural foraminal stenosis. This area however appears to be somewhat stabilized and has been decompressed. I believe is urgent issue is the large disc herniation at L2-3 on the right with caudal migration creating significant canal compromise and neural compression. This is concordant with his clinical presentation. He is quite miserable. This was in present for over 3 weeks without evidence of resolution. He subsequently could consider lumbar decompression partial discectomy at L2-3. This may require instrumented fusion at the time of surgery pending the amount of facet resection required. It may induce underlying instability particularly as he is underlying disease at this L2-3 level. Risk benefits pros cons and alternatives were outlined in detail. The patient would very much like to pursue surgery. We will wait medical input. All make him n.p.o. after midnight possible surgery Monday or Monday. Present on Admission?: Yes History of Present Illness Reason for Consultation: This a very pleasant 58-year-old male that presents with worsening right leg pain over the past 3 weeks. He does not describe any specific trauma fall or event. He does have history of injury to the upper lumbar spine proximally 2 years ago while moving hay [employer]. He describes his pain as well in the right buttock anterior thigh groin extending below the knee. Markedly limiting in nature. Is been present for over 3 weeks he is unable to ambulate comfortably. He is finds himself mostly lying in bed to find a position of comfort. Left lower extremity is asymptomatic. He does have a history of lumbar decompression in 2008 in the [facility]. This is at the L5-S1 level. Attending Physician: Rachana Ramirez DO Allergies Allergy/AdvReac Type Severity Reaction Status Date / Time No Known Allergies Allergy Unverified 02/08/19 12:33 Home Medications Home Medications Medication Instructions Recorded Confirmed Type amlodipine 10 mg PO PM 02/08/19 02/08/19 History atorvastatin 20 mg PO PM 02/08/19 02/08/19 History celecoxib 200 mg PO BIDM 02/08/19 02/08/19 History gabapentin 300 mg PO TID 02/08/19 02/08/19 History lisinopril-hydrochlorothiazide 1 tab PO PM 02/08/19 02/08/19 History naproxen sodium [Aleve] 440 mg PO BID PRN 02/08/19 02/08/19 History prednisone 20 mg PO .TAPER DOSE 02/08/19 02/08/19 History Patient History Medical History HTN (hypertension) (Chronic) HLD (hyperlipidemia) (Chronic) Hx of deep venous thrombosis (Chronic) SRI on CPAP (Chronic) Chronic low back pain (Chronic) DDD (degenerative disc disease) (Chronic) Surgical History History of lumbar surgery (Chronic) History of total knee arthroplasty (Chronic) B/L History of colonoscopy with polypectomy (Chronic) Status post epidural steroid injection (Chronic) Family History Brother Diabetes Father , age 62 Lung cancer Sister Colorectal cancer Other Family history of diabetes mellitus (DM) Social History Communication Ability: Effective Beliefs That Will Affect Care: None marital status: Current Living Situation: Spouse Other Information That Helps Us Care for You: No Feels Safe at Home: Yes Safety Concerns: Feels Safe At This Time Smoking Status: Never smoker Hx Alcohol Use: No Hx Substance Use: No Physical Exam Vital Signs (Past 24 Hours): Last Vital Signs Temp 36.8 C 02/10/19 07:36 Pulse 77 02/10/19 08:00 Resp 20 02/10/19 07:36 BP 127/86 02/10/19 07:36 Pulse Ox 97 02/10/19 07:36 Physical Exam: On physical exam he is in obvious distress. He is alert and cooperative. He exhibits no significant strength deficits. But obvious radiculopathy with straight leg raising on the right negative on the left. Well-healed midline lumbar
[2019-02-10] MEDS: diazePAM 5 MG TABLET PO PRN (13:35)
--- NOTE | 2019-02-10 14:05 | Oncology Consultation ---
Date of Consultation February 10, 2019 IMPRESSION AND PLAN: 58 year old obese male with a prior history of right lower extremity DVT and Pul monary embolism in 2008 unknown cause, patient states back pain was at least 6 months prior to him developing DVT/PE and he was continued on shelter anticoagulation due to the unknown cause of PE, FH of blood clots and stroke, chronic low back pain with a worsening 3 weeks ago and has been sedentary since that time and had stopped his xarelto for about a month prior to this admission due to change of his insurance and was unable to afford the cost of xarelto. CT chest PE protocol showing acute bilateral pulmonary embolism. Agree with heparin drip. I discussed with the patient that given the acute PE he is at high risk of thromboembolism or propagation of his acute Pulmonary embolism If surgery is elective and not emergent it should be delayed until his risk return to baseline or at least reduced since his highest risk is in the first month after his Pulmonary embolism, so if not emergent and if possible, it should be delayed for at least 3 to 4 weeks from the acute PE and repeat the CT scan PE protocol prior to surgery if surgery cannot be delayed up to 3 mths. recommend obtain pulmonary consult for perioperative assessment to assess his risk of pulmonary complications and hemodynamic instability given the Pulmonary embolism prior to surgery. also would recommend consult vascular surgery regarding need for Retrievable IVC filter perioperatively since after surgery anticoagulation would not restart until adequate hemostasis has been achieved and when safe from surgery standpoint when risk of bleeding from the surgery minimized, however he would be at risk for recurrent thromboembolism off anticoagulation given recent acute pulmonary embolism. check hypercoagulable workup Factor V leiden and prothrombin mutation protein C and S and cardiolipin antibody and beta 2 glycoprotein antibody Lupus anticoagulant and AT 3. would also recommend indefinite anticoagulation since this is his second Venous thromboembolic event. 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 Also he was unable to afford xarelto cost. Also follow up with hematology upon discharge, thank you for consult. discussed with Dr Ramirez reason for consult: pulmonary embolism History of Present Illness Attending Physician: Rachana Ramirez, DO HPI: 58 year old male with PMH of HTN, hyperlipidemia, a prior history of DVT/PE in 2008 unknown cause, who was on shelter coumadin then subsequently on xarelto. He had stopped his xarelto due to states it was too expensive and he stopped it due to changed insurance and said that the cost to him was over $400 per month which he was unable to afford so he decided not to take it. He is now admitted with pulmonary embolism. He states that he has chronic low back pain and had back surgery in 2008. He states that DVT and PE occurred 6 months after that surgery and states that he was active when he developed blood clot and that he was kept on anticoagulation since the cause of his DVT/PE was unknown and states that since 2008, he was compliant with it until the past month when he stopped due to unable to afford xarelto. He is obese but states that he is usually active but 3 weeks ago he was taking a shower and developed worsening of his low back pain and states that he has been having pain since that time. He states that the pain radiates from the right lower back down the right thigh, and so he has been sedentary for the past 3 weeks - states he mostly lie in couch or bed, only getting up to eat or use bathroom. He states pain is about 7 at rest but becomes severe when he ambulates. He was evaluated by Ortho spine Dr Jose who recommended surgery. He denies any shortness of breath or cough or palpitations or abdominal pain or pelvic pain or nausea or vomiting or diarrhea or melena or hematochezia or any bleeding or bruising symptoms. He presented to ER for severe back pain ongoing for 3 weeks and states was not controlled with his home medications. In ER he was tachycardic and a CT chest PE protocol was obtained that showed bilateral pulmonary embolism His O2 sat is 93% on room air. He has FH of blood clots - maternal grandfather had blood clots and stroke and his mother had stroke MRI L spine: MPRESSION: 1. Moderate multilevel spondylitic change. 2. The study is most significant for a right-sided extruded disc herniation at the L2-3 level. Disc material fills the right lateral recess and likely impinges on the right L3 nerve root. CT chest PE protocol 02/09/19 1. Bilateral lower lobe segmental and subsegmental acute pulmonary emboli without CT evidence of right heart strain. 2. Mild cardiomegaly with findings suggesting volume overload/congestive change. Findings worrisome for developing pulmonary edema. 3. Suspected hepatic steatosis. venous doppler of right lower extremity and left lower extremity - negative for pulmonary embolism Allergies Allergy/AdvReac Type Severity Reaction Status Date / Time No Known Allergies Allergy Unverified 02/08/19 12:33 Home Medications Home Medications Medication Instructions Recorded Confirmed Type amlodipine 10 mg PO PM 02/08/19 02/08/19 History atorvastatin 20 mg PO PM 02/08/19 02/08/19 History celecoxib 200 mg PO BIDM 02/08/19 02/08/19 History gabapentin 300 mg PO TID 02/08/19 02/08/19 History lisinopril-hydrochlorothiazide 1 tab PO PM 02/08/19 02/08/19 History naproxen sodium [Aleve] 440 mg PO BID PRN 02/08/19 02/08/19 History prednisone 20 mg PO .TAPER DOSE 02/08/19 02/08/19 History Patient History Medical History HTN (hypertension) (Chronic) HLD (hyperlipidemia) (Chronic) Hx of deep venous thrombosis (Chronic) SRI on CPAP (Chronic) Chronic low back pain (Chronic) DDD (degenerative disc disease) (Chronic) Surgical History History of lumbar surgery (Chronic) History of total knee arthroplasty (Chronic) B/L History of colonoscopy with polypectomy (Chronic) Status post epidural steroid injection (Chronic) Family History Brother Diabetes Father , age 62 Lung cancer Sister Colorectal cancer Other Family history of diabetes mellitus (DM) Social History Communication Ability: Effective Beliefs That Will Affect Care: None marital status: Current Living Situation: Spouse Other Information That Helps Us Care for You: No Feels Safe at Home: Yes Safety Concerns: Feels Safe At This Time Smoking Status: Never smoker Hx Alcohol Use: No Hx Substance Use: No Review of Systems Constitutional: no fever, no chills, no sweats, no fatigue, no malaise, no weakness and no weight loss denies any sudden visual changes no epistaxis no hoarseness or sore throat Respiratory: no cough, no dyspnea, no dyspnea on exertion, no hemoptysis, no pain on inspiration and no wheezing Cardiovascular: no chest pain, no chest pain with activity, no dyspnea, no dyspnea at rest, no dyspnea on exertion, no palpitations, no lightheadedness and no edema Gastrointestinal: no abdominal pain, no bloating, no nausea, no vomiting, no hematemesis, no pain with swallowing, no dysphagia, no change in bowel habits, no change in stools, no constipation, no diarrhea/loose stools, no blood in stools and no melena Genitourinary (Male): no dysuria, no urinary frequency and no hematuria Musculoskeletal: + radicular pain low back pain radiating down Right lower extremity no rashes or ecchymoses Neurologic: + radiating pain; no numbness low back pain radiating down right lower extremity Hematologic / Lymphatic: no easy bruising and no lymphadenopathy +PE - second event, prior history of right lower extremity DVT/PE in 2008 Allergy / Immunological: no wheezing, no cough, no dyspnea and no rash Physical Exam Vital Signs (Past 24 Hours): Last Vital Signs Temp 36.5 C 02/10/19 11:55 Pulse 90 02/10/19 11:55 Resp 20 02/10/19 11:55 BP 137/82 02/10/19 11:55 Pulse Ox 93 02/10/19 11:55 Gen: obese male lying in bed, no acute distress HEENT: anicteric no pallor no erythema or exudate Neck: obese Lungs: CTAB, no wheezes rale or rhonchi CV: S1 S2 RRR no murmurs appreciated Abs: obese soft Nontender nondistended no palpable organomegaly Ext: No edema, nontender, well healed scar from surgery on knee Neuro: alert and oriented x 3, grossly nonfocal, follows simple commands
--- NOTE | 2019-02-10 14:20 | Ultrasound Report ---
US venous doppler LE LT CLINICAL HISTORY: Pulmonary embolism. POSSIBLE SURGICAL CANDIDATE. COMPARISON STUDY: No previous studies for comparison. FINDINGS: Real-time and color flow Doppler imaging were performed. Flow was seen within the femoral, popliteal and calf veins with no intraluminal thrombus demonstrated. The saphenous vein is patent. IMPRESSION: No evidence of left lower extremity DVT. Electronically signed by: Mao Lambert M.D. 02/10/2019 2:19 PM
--- NOTE | 2019-02-10 16:06 | Hospitalist Progress Note ---
Date of Service February 10, 2019 Assessment & Plan (1) Bilateral pulmonary embolism: Will plan to restart Xarelto. Hypercoagulablepath ordered. (2) Acute exacerbation of chronic low back pain: nerve root impingement (3) Hypokalemia: Replace and repeat in a.m. (4) HTN (hypertension): Controlled on home amlodipine and lisinopril-HCTZ. (5) SRI on CPAP: Cpap at HS (6) DVT prophylaxis: Heparin drip Full code Dispo-DC home when able. Rachana Ramirez, [facility] Hospitalist Subjective Pain is very bad today. He is requiring some dilaudid, Started Medrol dosepak to help. He has tried back injection s in the past with no improvement. He reports wanting to switch back to Xarelto which he was previously taking. We discussed the high perioperative risk of undergoing surgery with an active untreated PE and the risks of being off anticoagulation for too long. Dr Chavira spoke wtih the patient Physical Exam Vital Signs (Past 24 Hours): Last Vital Signs Temp 36.5 C 02/10/19 15:12 Pulse 88 02/10/19 15:12 Resp 16 02/10/19 15:12 BP 101/67 02/10/19 15:12 Pulse Ox 98 02/10/19 15:12 CONSTITUTIONAL: obese, vitals as above, in mild-moderate distress 2/2 pain in leg. EYES: normal conjuctivae, no scleral icterus ENT: MMM RESPIRATORY: clear to auscultation bilaterally, no crackles, rales or wheezes, normal respiratory effort CARDIOVASCULAR: regular rate and rhythm, S1 and 2 heard without murmurs, gallops or rubs, no JVD, no peripheral edema GASTROINTESTINAL: normal bowel sounds, soft, nontender, nondistended MUSCULOSKELETAL: strength 5/5 throughout, head is normocephalic and atraumatic, normal range of motion of lower extremities. TTP in lower sacrum to palpation SKIN: warm and dry NEUROLOGIC: CN 2-12 grossly intact, no sensory deficit, normal cognition PSYCHIATRIC: alert cooperative and oriented to person, place and time. Results & Data Laboratory Results Short CBC 02/10/19 Range/Units 07:13 WBC 8.53 (4.8-10.8) K/uL Hgb 16.1 (14.0-18.0) g/dL Hct 47.5 (42-52) % Plt Count 163 (130-400) K/uL BMP 02/10/19 07:13 Sodium 140 Potassium 3.8 D Chloride 107 Carbon Dioxide 27 BUN 17 Creatinine 0.84 Glucose 99 Calcium 8.3 L Medications Administered Current Inpatient Medications Acetaminophen (Tylenol) 1,000 mg PO Q8H [facility] Stop: 03/11/19 17:59 Last Admin: 02/10/19 10:11 Dose: 1,000 mg Documented by: Al Hydrox/Mg Hydrox/Simethicone (Maalox) 15 ml PO Q4H PRN PRN Reason: Dyspepsia Stop: 03/10/19 17:09 Amlodipine Besylate (Norvasc) 10 mg PO PM [facility] Stop: 03/10/19 20:59 Last Admin: 02/09/19 20:01 Dose: 10 mg Documented by: Atorvastatin Calcium (Lipitor) 20 mg PO PM [facility] Stop: 03/10/19 20:59 Last Admin: 02/09/19 20:01 Dose: 20 mg Documented by: Diazepam (Valium) 5 mg PO TID PRN PRN Reason: muscle spasms Stop: 03/11/19 13:49 Last Admin: 02/10/19 13:35 Dose: 5 mg Documented by: Gabapentin (Neurontin) 300 mg PO TID [facility] Stop: 03/10/19 20:59 Last Admin: 02/10/19 13:34 Dose: 300 mg Documented by: Lisinopril/HCTZ (Prinzide 20/25mg) 1 tab PO PM [facility] Stop: 03/10/19 20:59 Last Admin: 02/09/19 20:02 Dose: 1 tab Documented by: Hydromorphone HCl (Dilaudid) 0.5 mg IV Q2H PRN PRN Reason: Severe Pain Stop: 02/22/19 17:09 Last Admin: 02/10/19 07:48 Dose: 0.5 mg Documented by: Heparin Sodium/Dextrose (Heparin Sodium/Dextrose) 25,000 units in 500 mls @ 34 mls/hr IV .[id number] [facility]; Protocol Stop: 03/10/19 17:44 Last Admin: 02/10/19 10:09 Dose: 1,700 units/hr, 34 mls/hr Documented by: Magnesium Hydroxide (Milk Of Magnesia) 30 ml PO Q12H PRN PRN Reason: Constipation Stop: 03/10/19 17:09 Methylprednisolone (Medrol) 8 mg PO 0700,2100 [facility] Stop: 02/10/19 21:01 Last Admin: 02/10/19 11:30 Dose: 8 mg Documented by: Methylprednisolone (Medrol) 4 mg PO 1300,1800 [facility] Stop: 02/10/19 18:01 Last Admin: 02/10/19 13:33 Dose: 4 mg Documented by: Methylprednisolone (Medrol) 4 mg PO 0700,1300,1800 [facility] Stop: 02/11/19 18:01 Methylprednisolone (Medrol) 8 mg PO HS [facility] Stop: 02/11/19 21:01 Methylprednisolone (Medrol) 4 mg PO 0700,1300,1800,2100 [facility] Stop: 02/12/19 21:01 Methylprednisolone (Medrol) 4 mg PO 0700,1300,2100 [facility] Stop: 02/13/19 21:01 Methylprednisolone (Medrol) 4 mg PO 0700,2100 [facility] Stop: 02/14/19 21:01 Methylprednisolone (Medrol) 4 mg PO 0700 [facility] Stop: 02/15/19 07:01 Ondansetron HCl (Zofran) 4 mg IV Q6H PRN PRN Reason: Nausea Stop: 03/10/19 17:09 Polyethylene Glycol (Miralax Powder Packet) 17 gm PO DAILY PRN PRN Reason: Constipation Stop: 03/10/19 17:09 Tramadol HCl (Ultram) 50 mg PO Q6H PRN PRN Reason: pain Stop: 03/10/19 17:09 Last Admin: 02/09/19 17:47 Dose: 50 mg Documented by: (1) HTN (hypertension) Hypertension type: essential hypertension Qualified Code(s): I10 - Essential (primary) hypertension
[2019-02-10] MEDS ORDERED: HYDROCODONE/ACETAMOPHEN 5/325MG TAB PO PRN (19:03)
[2019-02-10] MEDS ORDERED: HYDROCODONE/ACETAMOPHEN 5/325MG TAB PO ONE (19:04)
[2019-02-10] MEDS ORDERED: OXYCODONE HCL IR 5 MG TAB (IMMEDIATE RELEASE) PO STA (19:13)
[2019-02-10] MEDS: LISINOPRIL/HCTZ 20/25MG 1 TAB PO SCH (21:06)
[2019-02-10] MEDS: AMLODIPINE BESYLATE 5 MG TAB PO SCH (21:07)
[2019-02-10] MEDS: ATORVASTATIN 20 MG TAB PO SCH (21:08)
[2019-02-11] MEDS: ACETAMINOPHEN 500 MG TAB PO SCH ×3 (03:05→18:05)
[2019-02-11] MEDS: methylPREDNISolone 4 MG TAB PO SCH ×3 (06:22→18:51)
[2019-02-11] MEDS: HYDROmorphone INJ 0.5 MG/0.5 ML SYR IV PRN ×3 (06:22→18:03)
[2019-02-11 07:10] LABS: Partial Thromboplastin Ratio 1.6; Partial Thromboplastin Time 43.5 Seconds (21.0-31.0)
[2019-02-11] MEDS ORDERED: HEPARIN IV BOLUS 7,000 UNITS in SYRINGE 0 ML IV ONE (07:11)
[2019-02-11] MEDS ORDERED: HEPARIN IV BOLUS 4,000 UNITS in SYRINGE 0 ML IV ONE (07:17)
[2019-02-11] MEDS: OXYCODONE HCL IR 5 MG TAB (IMMEDIATE RELEASE) PO PRN ×2 (07:33→14:07)
[2019-02-11] MEDS: GABAPENTIN 300 MG CAP PO SCH ×2 (09:34→14:04)
[2019-02-11] MEDS: RIVAROXABAN 15 MG TAB PO SCH ×2 (10:44→20:58)
[2019-02-11 11:52] LABS: Partial Thromboplastin Ratio 1.2; Partial Thromboplastin Time 33.3 Seconds (21.0-31.0)
--- NOTE | 2019-02-11 12:25 | Orthopedic Progress Note ---
Date of Service February 11, 2019 Assessment & Plan (1) Lumbar disc herniation with radiculopathy: I long discussion with this patient reviewing his clinical presentation and are concerns. He does understand if we do entertain surgical intervention would require the placement of an IVC filter. He would very much like to pursue this alternative. As he is quite uncomfortable and has marked limitations with ability to ambulate. Consultations will be made in regards to these issues. Hopefully he will be able to proceed with filter placement and laminectomy of L2-3 the next few days. Present on Admission?: Yes Subjective Patient continued to have significant right leg pain and concordance with his herniated disc at L2-3. Physical Exam Vital Signs (Past 24 Hours): Last Vital Signs Temp 36.8 C 02/11/19 11:06 Pulse 96 H 02/11/19 11:06 Resp 18 02/11/19 11:06 BP 134/75 02/11/19 11:06 Pulse Ox 95 02/11/19 11:06 Physical Exam: Patient is lying supine and in his most comfortable position. No gross strength deficits.
--- NOTE | 2019-02-11 16:37 | Pulmonary Consultation ---
Date of Consultation February 11, 2019 Assessment & Plan (1) DVT prophylaxis: Impression: 1. Severe back pain with neurologic deficit in a patient who is prepared for laminectomy. 2. Small, tiny PE, asymptomatic and incidental finding only. 3. No evidence of DVT. 4. The patient was on chronic anticoagulation, he stopped them for a month and a half due to cost issue. He used to take Xarelto. 5. Morbid obesity with obstructive sleep apnea. 6. Immobility. Plan: 1. Hold off on the surgery for 2 weeks. 2. Continue anticoagulation for 2 weeks. 3. Stop the anticoagulation as desired by surgery, and postop can be restarted on anticoagulation if okay with surgery 48 hours later. 4. No need for IVC filter. 5. The PE the patient has is too small, asymptomatic, and incidental finding at best. 6. I attempted to call Dr. Jose, I will discuss the case with him. Thank you History of Present Illness Reason for Consultation: PE, preop eval. Requesting Physician: Dr. Ramirez. Attending Physician: Rachana Ramirez, DO History of Present Illness Dear Dr. Ramirez: Thank you very kind referral Mr. Chavira to pulmonary service. This is 58-year-old gentleman with a history of significant lumbar radiculopathy, status post laminectomy in 2008, complicated by DVT back then, the patient was kept on anticoagulation due to his immobility and his body weight. For the past 2 years, the patient had an incident where he injured his back again and he continued to have back pain. He was taking care of his mother who a month ago, and he felt that he can pursue definitive therapy to his chronic back pain and numbness in his right lower extremity. The patient was admitted to the hospital for tentative laminectomy. The patient underwent a workup including lower extremity ultrasound as well as CT angios which showed small, tiny PEs mainly affecting the subsegment of the right lower lobe. The patient denies any respiratory symptoms, he has no chest pain, no cough no hemoptysis, no nausea or vomiting, no dizziness or near syncopal episode, no palpitation. No pain in his legs but he does have numbness due to nerve compression. The patient exercise capacity has been limited due to his back pain but he does not use oxygen, no evidence of hypoxia. No family history of PE. Or DVT or venous thromboembolic event. The patient is non-smoker lifetime. Allergies Allergy/AdvReac Type Severity Reaction Status Date / Time No Known Allergies Allergy Unverified 02/08/19 12:33 Home Medications Home Medications Medication Instructions Recorded Confirmed Type amlodipine 10 mg PO PM 02/08/19 02/08/19 History atorvastatin 20 mg PO PM 02/08/19 02/08/19 History celecoxib 200 mg PO BIDM 02/08/19 02/08/19 History gabapentin 300 mg PO TID 02/08/19 02/08/19 History lisinopril-hydrochlorothiazide 1 tab PO PM 02/08/19 02/08/19 History naproxen sodium [Aleve] 440 mg PO BID PRN 02/08/19 02/08/19 History prednisone 20 mg PO .TAPER DOSE 02/08/19 02/08/19 History Patient History Medical History HTN (hypertension) (Chronic) HLD (hyperlipidemia) (Chronic) Hx of deep venous thrombosis (Chronic) SRI on CPAP (Chronic) Chronic low back pain (Chronic) DDD (degenerative disc disease) (Chronic) Surgical History History of lumbar surgery (Chronic) History of total knee arthroplasty (Chronic) B/L History of colonoscopy with polypectomy (Chronic) Status post epidural steroid injection (Chronic) Family History Brother Diabetes Father , age 62 Lung cancer Sister Colorectal cancer Other Family history of diabetes mellitus (DM) Social History Communication Ability: Effective Beliefs That Will Affect Care: None marital status: Current Living Situation: Spouse Other Information That Helps Us Care for You: No Feels Safe at Home: Yes Safety Concerns: Feels Safe At This Time Smoking Status: Never smoker Hx Alcohol Use: No Hx Substance Use: No Review of Systems 10 systems including the above has been reviewed, other than that was unremarkable. Physical Exam Vital Signs (Past 24 Hours): Last Vital Signs Temp 36.7 C 02/11/19 15:17 Pulse 88 02/11/19 15:56 Resp 18 02/11/19 15:17 BP 106/73 02/11/19 15:17 Pulse Ox 94 02/11/19 15:17 Physical Exam: Morbid obesity, vital signs are stable, O2 sat 95% on room air, no JVD, his neck size is over than 24 inches, S1-S2 regular rate and rhythm, distant breath sounds, abdomen is benign, no edema in the periphery, neurologically difficult to assess, no oral thrush, no rash. No visual disturbances. Results & Data Laboratory Results Lab results also were reviewed Diagnostic Findings CAT scan of the chest which I reviewed personally did not show any pleural effusion, no infiltrate, small tiny PE at the inferior segment of the right pulmonary artery.
[2019-02-11] MEDS: TRAMADOL HCL 50 MG TABLET PO PRN (17:09)
--- NOTE | 2019-02-11 18:05 | Hospitalist Progress Note ---
Date of Service February 11, 2019 Assessment & Plan (1) Bilateral pulmonary embolism: aDvid, plan to bridge perioperatively. (2) Acute exacerbation of chronic low back pain: Disc herniation with nerve root impingement and acute flare in the last 3 weeks. We will switch him to Dilaudid pump at this time. Increase goal of gabapentin to 600 3 times daily, continue Medrol Dosepak, continue scheduled Tylenol. (3) HTN (hypertension): Controlled on home amlodipine and lisinopril-HCTZ. (4) SRI on CPAP: Cpap at HS (5) DVT prophylaxis: [place] Full code Dispo-DC home when pain is controlled on oral medications. Rachana Ramirez DO [facility] Hospitalist Subjective Writhing around in excruciating pain, review of systems is unobtainable secondary to severe pain. Physical Exam Vital Signs (Past 24 Hours): Last Vital Signs Temp 36.7 C 02/11/19 15:17 Pulse 88 02/11/19 15:56 Resp 18 02/11/19 15:17 BP 106/73 02/11/19 15:17 Pulse Ox 94 02/11/19 15:17 CONSTITUTIONAL: obese, vitals as above, in severe distress, holding his leg. EYES: normal conjuctivae, no scleral icterus ENT: MMM RESPIRATORY: clear to auscultation bilaterally, no crackles, rales or wheezes, normal respiratory effort CARDIOVASCULAR: regular rate and rhythm, S1 and 2 heard without murmurs, gallops or rubs, no JVD, no peripheral edema GASTROINTESTINAL: normal bowel sounds, soft, nontender, nondistended MUSCULOSKELETAL: strength 5/5 throughout, head is normocephalic and atraumatic, normal range of motion of lower extremities. TTP in lower sacrum to palpation SKIN: warm and dry NEUROLOGIC: CN 2-12 grossly intact, no sensory deficit, normal cognition PSYCHIATRIC: alert cooperative and oriented to person, place and time. Results & Data Medications Administered Current Inpatient Medications Acetaminophen (Tylenol) 1,000 mg PO Q8H [facility] Stop: 03/11/19 17:59 Last Admin: 02/11/19 18:05 Dose: 1,000 mg Documented by: Al Hydrox/Mg Hydrox/Simethicone (Maalox) 15 ml PO Q4H PRN PRN Reason: Dyspepsia Stop: 03/10/19 17:09 Amlodipine Besylate (Norvasc) 10 mg PO PM [facility] Stop: 03/10/19 20:59 Last Admin: 02/10/19 21:07 Dose: 10 mg Documented by: Atorvastatin Calcium (Lipitor) 20 mg PO PM [facility] Stop: 03/10/19 20:59 Last Admin: 02/10/19 21:08 Dose: 20 mg Documented by: Diazepam (Valium) 5 mg PO TID PRN PRN Reason: muscle spasms Stop: 03/11/19 13:49 Last Admin: 02/10/19 13:35 Dose: 5 mg Documented by: Gabapentin (Neurontin) 300 mg PO TID [facility] Stop: 03/10/19 20:59 Last Admin: 02/11/19 14:04 Dose: 300 mg Documented by: Lisinopril/HCTZ (Prinzide 20/25mg) 1 tab PO PM [facility] Stop: 03/10/19 20:59 Last Admin: 02/10/19 21:06 Dose: 1 tab Documented by: Hydromorphone HCl (Dilaudid) 0.5 mg IV Q2H PRN PRN Reason: Severe Pain Stop: 02/22/19 17:09 Last Admin: 02/11/19 18:03 Dose: 0.5 mg Documented by: Magnesium Hydroxide (Milk Of Magnesia) 30 ml PO Q12H PRN PRN Reason: Constipation Stop: 03/10/19 17:09 Methylprednisolone (Medrol) 8 mg PO HS [facility] Stop: 02/11/19 21:01 Methylprednisolone (Medrol) 4 mg PO 0700,1300,1800,2100 [facility] Stop: 02/12/19 21:01 Methylprednisolone (Medrol) 4 mg PO 0700,1300,2100 [facility] Stop: 02/13/19 21:01 Methylprednisolone (Medrol) 4 mg PO 0700,2100 [facility] Stop: 02/14/19 21:01 Methylprednisolone (Medrol) 4 mg PO 0700 [facility] Stop: 02/15/19 07:01 Ondansetron HCl (Zofran) 4 mg IV Q6H PRN PRN Reason: Nausea Stop: 03/10/19 17:09 Oxycodone HCl (Roxicodone Immediate Rel) 5 mg PO Q4H PRN PRN Reason: severe breakthrough pain Stop: 02/24/19 19:13 Last Admin: 02/11/19 14:07 Dose: 5 mg Documented by: Polyethylene Glycol (Miralax Powder Packet) 17 gm PO DAILY PRN PRN Reason: Constipation Stop: 03/10/19 17:09 Rivaroxaban (Xarelto) 15 mg PO BID [facility] Stop: 03/03/19 21:01 Last Admin: 02/11/19 10:44 Dose: 15 mg Documented by: Tramadol HCl (Ultram) 50 mg PO Q6H PRN PRN Reason: pain Stop: 03/10/19 17:09 Last Admin: 02/11/19 17:09 Dose: 50 mg Documented by: (1) HTN (hypertension) Hypertension type: essential hypertension Qualified Code(s): I10 - Essential (primary) hypertension
[2019-02-11] MEDS ORDERED: NALOXONE HCL 0.4 MG/1 ML VIAL/CARP IV PRN (18:25)
[2019-02-11] MEDS: SODIUM CHLORIDE 0.9% 1000ML 1,000 ML IV SCH (20:34)
[2019-02-11] MEDS: HYDROmorphone HCL 0.5MG/ML 50 ML CASSETTE IV PRN (20:35)
[2019-02-11] MEDS: GABAPENTIN 600 MG TAB PO SCH (20:56)
[2019-02-11] MEDS: LISINOPRIL/HCTZ 20/25MG 1 TAB PO SCH (20:58)
[2019-02-11] MEDS ORDERED: methylPREDNISolone 4 MG TAB PO SCH (21:00)
[2019-02-11] MEDS: ATORVASTATIN 20 MG TAB PO SCH (21:49)
[2019-02-11] MEDS: AMLODIPINE BESYLATE 5 MG TAB PO SCH (21:49)
[2019-02-12] MEDS: ACETAMINOPHEN 500 MG TAB PO SCH ×3 (01:36→18:10)
[2019-02-12] MEDS: methylPREDNISolone 4 MG TAB PO SCH ×4 (06:30→20:34)
[2019-02-12] MEDS: RIVAROXABAN 15 MG TAB PO SCH ×2 (07:45→20:36)
[2019-02-12] MEDS: GABAPENTIN 600 MG TAB PO SCH ×3 (07:46→20:34)
[2019-02-12 07:53] LABS: Hematocrit (blood only) 51.9 % (42-52); Hemoglobin 17.7 g/dL (14.0-18.0); Mean Corpuscular Hgb Conc 34.1 g/dL (32-36); Mean Corpuscular Volume 85.6 fL (80-100); Mean Platelet Volume 10.4 fL (7.4-10.4); Platelet Count 213 K/uL (130-400); RDW Coefficient of Variation 15.2 % (11.5-14.5); RDW Standard Deviation 47.9 fL (36.4-46.3); Red Blood Count 6.06 M/uL (4.7-6.1); White Blood Count 14.91 K/uL (4.8-10.8)
[2019-02-12 08:02] LABS: Partial Thromboplastin Time 26.2 Seconds (21.0-31.0)
[2019-02-12 08:12] LABS: BUN Creatinine Ratio 25.9 (10-20); Calcium 8.8 mg/dl (8.5-10.1); Creatinine Clr Calc Pharmacy 119.8 ml/min; Est GFR (African American) 94.8; Est GFR (Non-African American) 81.8; Potassium 4.7 mmol/L (3.5-5.1)
--- NOTE | 2019-02-12 13:18 | Hospitalist Progress Note ---
Date of Service February 12, 2019 Assessment & Plan (1) Bilateral pulmonary embolism: Continue Xarelto. Per hematology hypercoagulable workup is pending. Patient will need lifelong anticoagulation according to pulmonary and hematology moving forward. As stated above, he should be discharged on Xarelto with bridging to Lovenox 5 days prior to the surgery and factor Xa levels followed at that time. Lovenox can then be held one day prior to the operation. Defer anesthesia evaluation to surgery and when. Per hematology repeat CTA is recommended prior to the surgery. No IVC filter is indicated at this time and vascular has not been consulted. He is breathing well and throughout his entire hospitalization has been hemodynamically stable and not requiring supplemental oxygen. (2) Acute exacerbation of chronic low back pain: Disc herniation with nerve root impingement causing severe pain now controlled on Dilaudid [employer]LLER. Continue scheduled Tylenol, increase gabapentin dose to 600 three times daily and complete Medrol Dosepak started 2 days ago. Continue to encourage ambulation as tolerated and hope patient will wean off pump in the next day to 2 days. (3) HTN (hypertension): Controlled on home amlodipine and lisinopril-HCTZ. (4) SRI on CPAP: Cpap at HS (5) Leukocytosis: Secondary to steroids. There is no evidence of infection at this time. (6) DVT prophylaxis: Xarelto Full code Dispo-DC home when pain is controlled on oral medications. As above patient w ill need to bridge with Lovenox preoperatively. Consider CT chest repeat prior to surgery, also. Consider anesthesia evaluation while patient is still in hospital if surgery will be planned soon. Rachana Ramirez DO [facility] Hospitalist Subjective He is much improved today after Dilaudid pump initiated last night. He is actually eating food today which has not happened for 2 days. He was able to get up and walk around without any discomfort. He does still have some numbness upon standing which persists. We discussed the plan long-term which includes possible lumbar decompression and fusion by Dr. Jose in 14 days after initiation of anticoagulation for bilateral PE. As there is no right heart strain 14 days appeared to be an ideal time per pulmonology. Hematology recommends repeating CT chest prior to the operation. Regarding anticoagulation he is currently on Xarelto for which she has a drug coupon. This is what he has used in the past and does well on it. For this he will need to stop Xarelto 5 days prior to the operation at which point he should transition to Lovenox injections twice daily. Therefore, if he is discharged prior to surgery he will need a prescription for this preoperative Lovenox bridge. Factor Xa levels will also need to be followed per pharmacy. Anesthesia has not yet weight in on their preoperative assessment and recommendations, deferring this to surgery. Overall he feels much better and is now ambulating so was encouraged to continue ambulating to a he agrees with this. Blood pressure has notably come down into range now. Physical Exam Vital Signs (Past 24 Hours): Last Vital Signs Temp 36.5 C 02/12/19 11:35 Pulse 86 02/12/19 11:35 Resp 18 02/12/19 11:35 BP 114/73 02/12/19 11:35 Pulse Ox 93 02/12/19 11:35 CONSTITUTIONAL: obese, vitals as above, no distress EYES: normal conjuctivae, no scleral icterus ENT: MMM RESPIRATORY: clear to auscultation bilaterally, no crackles, rales or wheezes, normal respiratory effort CARDIOVASCULAR: regular rate and rhythm, S1 and 2 heard without murmurs, gallops or rubs, no JVD, no peripheral edema GASTROINTESTINAL: normal bowel sounds, soft, nontender, nondistended MUSCULOSKELETAL: strength 5/5 throughout, head is normocephalic and atraumatic, normal range of motion of lower extremities. SKIN: warm and dry NEUROLOGIC: CN 2-12 grossly intact, no sensory deficit, normal cognition PSYCHIATRIC: alert cooperative and oriented to person, place and time. Results & Data Laboratory Results Short CBC 02/12/19 Range/Units 07:33 WBC 14.91 H (4.8-10.8) K/uL Hgb 17.7 (14.0-18.0) g/dL Hct 51.9 (42-52) % Plt Count 213 (130-400) K/uL BMP 02/12/19 07:33 Sodium 140 Potassium 4.7 Chloride 105 Carbon Dioxide 30 BUN 26 H Creatinine 1.02 Glucose 106 H Calcium 8.8 Medications Administered Current Inpatient Medications Acetaminophen (Tylenol) 1,000 mg PO Q8H [facility] Stop: 03/11/19 17:59 Last Admin: 02/12/19 10:50 Dose: Not Given Documented by: Al Hydrox/Mg Hydrox/Simethicone (Maalox) 15 ml PO Q4H PRN PRN Reason: Dyspepsia Stop: 03/10/19 17:09 Amlodipine Besylate (Norvasc) 10 mg PO PM [facility] Stop: 03/10/19 20:59 Last Admin: 02/11/19 21:49 Dose: 10 mg Documented by: Atorvastatin Calcium (Lipitor) 20 mg PO PM [facility] Stop: 03/10/19 20:59 Last Admin: 02/11/19 21:49 Dose: 20 mg Documented by: Gabapentin (Neurontin) 600 mg PO TID [facility] Stop: 03/13/19 20:59 Last Admin: 02/12/19 13:14 Dose: 600 mg Documented by: Lisinopril/HCTZ (Prinzide 20/25mg) 1 tab PO PM [facility] Stop: 03/10/19 20:59 Last Admin: 02/11/19 20:58 Dose: 1 tab Documented by: Hydromorphone HCl (Dilaudid [employer]) 25 mg IV PRN PRN; Protocol PRN Reason: Pain Stop: 02/25/19 18:24 Last Admin: 02/11/19 20:35 Dose: 25 mg Documented by: Sodium Chloride (Nss 1000ml) 1,000 mls @ 15 mls/hr IV .Q24H [facility] Stop: 02/25/19 18:25 Last Admin: 02/11/19 20:34 Dose: 15 mls/hr Documented by: Magnesium Hydroxide (Milk Of Magnesia) 30 ml PO Q12H PRN PRN Reason: Constipation Stop: 03/10/19 17:09 Methylprednisolone (Medrol) 4 mg PO 0700,1300,1800,2100 [facility] Stop: 02/12/19 21:01 Last Admin: 02/12/19 12:24 Dose: 4 mg Documented by: Methylprednisolone (Medrol) 4 mg PO 0700,1300,2100 [facility] Stop: 02/13/19 21:01 Methylprednisolone (Medrol) 4 mg PO 0700,2100 [facility] Stop: 02/14/19 21:01 Methylprednisolone (Medrol) 4 mg PO 0700 [facility] Stop: 02/15/19 07:01 Naloxone HCl (Narcan) 0.1 mg IV Q5M PRN; Protocol PRN Reason: Oversedation/Resp Depression Stop: 02/25/19 18:24 Ondansetron HCl (Zofran) 4 mg IV Q6H PRN PRN Reason: Nausea Stop: 03/10/19 17:09 Polyethylene Glycol (Miralax Powder Packet) 17 gm PO DAILY PRN PRN Reason: Constipation Stop: 03/10/19 17:09 Rivaroxaban (Xarelto) 15 mg PO BID [facility] Stop: 03/03/19 21:01 Last Admin: 02/12/19 07:45 Dose: 15 mg Documented by: (1) HTN (hypertension) Hypertension type: essential hypertension Qualified Code(s): I10 - Essential (primary) hypertension
[2019-02-12] MEDS: ATORVASTATIN 20 MG TAB PO SCH (20:33)
[2019-02-12] MEDS: AMLODIPINE BESYLATE 5 MG TAB PO SCH (20:34)
[2019-02-12] MEDS: LISINOPRIL/HCTZ 20/25MG 1 TAB PO SCH (20:36)
[2019-02-13] MEDS: ACETAMINOPHEN 500 MG TAB PO SCH ×3 (01:25→17:52)
[2019-02-13] MEDS: methylPREDNISolone 4 MG TAB PO SCH ×3 (06:14→20:39)
[2019-02-13 07:49] LABS: Partial Thromboplastin Ratio 1.2; Partial Thromboplastin Time 31.3 Seconds (21.0-31.0)
[2019-02-13] MEDS: GABAPENTIN 600 MG TAB PO SCH ×3 (07:55→20:39)
[2019-02-13] MEDS: RIVAROXABAN 15 MG TAB PO SCH ×2 (07:55→20:39)
[2019-02-13] MEDS: HYDROmorphone HCL 0.5MG/ML 50 ML CASSETTE IV PRN (12:48)
--- NOTE | 2019-02-13 13:26 | Hospitalist Progress Note ---
Date of Service February 13, 2019 Assessment & Plan (1) Bilateral pulmonary embolism: CT chest with contrast : Bilateral lower lobe segmental and subsegmental acute PE without CT evidence of right heart strain. 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, stopped taking anticoagulation last year as he could not afford the meds Family history of PE DVT Lower extremity Doppler negative for DVT Appreciate input from hematology oncology, Hypercoagulable workup ordered report still pending Patient will need lifelong anticoagulation according to pulmonary and hematology Xarelto will be discontinued 5 days prior to surgery, with Lovenox bridge Lovenox bridge therapy can be held 1 day prior to surgery Patient will need a CTA chest preop Anesthesia urology consult preop 2D echo: 02/08/2019: Study is technically difficult Left ventricular wall motion is normal Left ventricular systolic function is normal ejection fraction 65-70% grade 1 diastolic dysfunction Doppler finding does not suggest pulmonary hypertension Grossly normal right heart size and function (2) Lumbar disc herniation with radiculopathy: Disc herniation with nerve root impingement and acute flare in the last 3 weeks. MRI of lumbar spine: Moderate multilevel spondylotic change The study is most significant for a right-sided extruded disc herniation at the L2-L3 level, material fills the right lateral recess and likely impinges on the right L3 nerve root Spinal surgery, consulted, appreciate input from Dr. Jose Plan for elective lumbar decompression surgery in 2 weeks Patient was started with IV Dilaudid [employer] pump secondary to intractable pain, Gabapentin increased to 600 mg p.o. 3 times daily for neuropathic pain, added Medrol Dosepak, continue scheduled Tylenol Pain management consulted Present on Admission?: Yes (3) Acute exacerbation of chronic low back pain: Due to above (4) HTN (hypertension): Controlled on home amlodipine and lisinopril-HCTZ. (5) SIR on CPAP: Cpap at HS (6) DVT prophylaxis: Xarelto Full code Dispo-DC home when pain is controlled on oral medications. Subjective No complaint of chest pain, no shortness of breath, no dyspnea on exertion, decide for any palpitation, no cough no fever or chills Persistent back pain worse with minimal movement Using IV Dilaudid [employer] pump intermittent Physical Exam Vital Signs (Past 24 Hours): Last Vital Signs Temp 37.1 C 02/13/19 12:15 Pulse 95 H 02/13/19 12:15 Resp 18 02/13/19 12:15 BP 129/77 02/13/19 12:15 Pulse Ox 95 02/13/19 12:15 Physical Exam: GENERAL: No sign of distress, HEENT: Sclera nonicteric, pink-purple bilateral equal reactive to light extraocular muscle intact Normal oral mucosa, neck: No JVD, no thyromegaly, trachea midline Lungs: Clear to auscultate, no wheeze or rales Cardiovascular: Regular S1 and S2, no murmur or gallop, no JVD, no lower extremity edema Abdomen: Soft, nontender, bowel sounds active, no hepatosplenomegaly Extremities: No rash or deformity, normal joint, Neuro: No focal neurological deficit, no dysarthria, no facial droop Psych: Alert awake oriented x3: Euthymic Skin: No rash LYMPH NODES: No cervical lymphadenopathy (1) HTN (hypertension) Hypertension type: essential hypertension Qualified Code(s): I10 - Essential (primary) hypertension
[2019-02-13] MEDS: SODIUM CHLORIDE 0.9% 1000ML 1,000 ML IV SCH (14:15)
[2019-02-13] MEDS: ATORVASTATIN 20 MG TAB PO SCH (20:38)
[2019-02-13] MEDS: AMLODIPINE BESYLATE 5 MG TAB PO SCH (20:39)
[2019-02-13] MEDS: LISINOPRIL/HCTZ 20/25MG 1 TAB PO SCH (20:39)
[2019-02-14] MEDS: ACETAMINOPHEN 500 MG TAB PO SCH ×3 (02:03→17:47)
[2019-02-14] MEDS: methylPREDNISolone 4 MG TAB PO SCH ×2 (06:12→21:32)
[2019-02-14 06:51] LABS: Partial Thromboplastin Ratio 1.2; Partial Thromboplastin Time 32.5 Seconds (21.0-31.0)
[2019-02-14] MEDS: RIVAROXABAN 15 MG TAB PO SCH (07:58)
[2019-02-14] MEDS: GABAPENTIN 600 MG TAB PO SCH ×3 (07:58→21:32)
--- NOTE | 2019-02-14 12:37 | Hospitalist Progress Note ---
Date of Service February 14, 2019 Assessment & Plan (1) Bilateral pulmonary embolism: CT chest with contrast : Bilateral lower lobe segmental and subsegmental acute PE without CT evidence of right heart strain. 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, stopped taking anticoagulation last year as he could not afford the meds Family history of PE DVT Lower extremity Doppler negative for DVT Appreciate input from hematology oncology, Hypercoagulable workup ordered report still pending Patient will need lifelong anticoagulation according to pulmonary and hematology Will DC Xarelto, patient will be started with IV heparin bridge vascular surgery consulted for IVC filter placement, plan to lumbar decompression surgery on Monday Patient cannot afford Xarelto because of the high co-pay Ideally would be best to be on Coumadin for treatment lifelong 2D echo: 02/08/2019: Study is technically difficult Left ventricular wall motion is normal Left ventricular systolic function is normal ejection fraction 65-70% grade 1 diastolic dysfunction Doppler finding does not suggest pulmonary hypertension Grossly normal right heart size and function Patient remains hemodynamically stable, no hypoxia, no shortness of breath No prior history of MA, cardiomyopathy or CHF Remains moderate to high risk for crissy-and postoperative complications which is less than 5%, Patient should proceed for elective lumbar decompression surgery, do not believe any further imaging or studies will improve or reduce the cardiac risk (2) Lumbar disc herniation with radiculopathy: Disc herniation with nerve root impingement and acute flare in the last 3 weeks. MRI of lumbar spine: Moderate multilevel spondylotic change The study is most significant for a right-sided extruded disc herniation at the L2-L3 level, material fills the right lateral recess and likely impinges on the right L3 nerve root Spinal surgery, consulted, appreciate input from Dr. Jose Plan for elective lumbar decompression surgery in 2 weeks Patient was started with IV Dilaudid GLASSIE pump secondary to intractable pain, Gabapentin increased to 600 mg p.o. 3 times daily for neuropathic pain, added Medrol Dosepak, continue scheduled Tylenol Pain management consulted-recommend to have some spinal decompression surgery done as soon as possible to provide adequate pain medications Discharging with oral p.o. medication for 2 weeks can lead large amount of pain medication intake secondary to severe intractable radiculopathy, narcotic pain medication dependency Case discussed with Dr. Jose, willing to do spinal decompression surgery on Monday, Anesthesia consulted, vascular surgery consulted for IVC filter placement, started on IV heparin infusion, Xarelto discontinued IV heparin can be held one day before once IVC filter is placed (3) Acute exacerbation of chronic low back pain: Due to above Will need lumbar decompression surgery, possibly will be done on 02/18/2019 (4) HTN (hypertension): Controlled on home amlodipine and lisinopril-HCTZ. (5) SRI on CPAP: Cpap at HS (6) DVT prophylaxis: IV heparin, low-dose no bolus CODE STATUS: Full code Disposition: To be determined, spinal decompression surgery possibly on Monday then PT OT evaluation Subjective Discussed with pain management: Dr. Dominguez For recommendation to transition to IV Dilaudid GLASSIE to oral p.o. meds Patient has significant right-sided lumbar disc herniation with radiculopathy Will be hard to control pain medication with narcotics only without surgical intervention Per Dr. Rene, patient can be discharged on oxycodone 5 mg p.o. every 6 hours but given the extent of pain and discomfort, patient possibly will need to utilize large amount of pain medications while waiting for back surgery next 2 weeks Leading high risk for narcotics pain medication dependency Ideally patient can get a retractable/retrievable IVC filter placement for surgery, Moderate to high risk, echo shows no evidence of right heart strain Waiting for 2 weeks we will not make any change with patient's risk for crissy-and postoperative complication Anesthesia will be consulted for preop risk stratification as well Discussed with spinal surgery Dr. Jose, and agreeable with the plan, willing to schedule patient for spinal decompression surgery on 02/18/2019 Will discontinue Xarelto, patient will be started with IV heparin bridge, till IVC filter is placed Anesthesia consulted Physical Exam Vital Signs (Past 24 Hours): Last Vital Signs Temp 36.8 C 02/14/19 07:40 Pulse 75 02/14/19 07:40 Resp 18 02/14/19 07:40 BP 146/71 H 02/14/19 07:40 Pulse Ox 94 02/14/19 07:40 Physical Exam: GENERAL: No sign of distress, HEENT: Sclera nonicteric, pink-purple bilateral equal reactive to light extraocular muscle intact Normal oral mucosa, neck: No JVD, no thyromegaly, trachea midline Lungs: Clear to auscultate, no wheeze or rales Cardiovascular: Regular S1 and S2, no murmur or gallop, no JVD, no lower extremity edema Abdomen: Soft, nontender, bowel sounds active, no hepatosplenomegaly Extremities: No rash or deformity, normal joint, Neuro: No focal neurological deficit, no dysarthria, no facial droop Psych: Alert awake oriented x3: Euthymic Skin: No rash LYMPH NODES: No cervical lymphadenopathy (1) HTN (hypertension) Hypertension type: essential hypertension Qualified Code(s): I10 - Essential (primary) hypertension
[2019-02-14 15:07] LABS: Anti Cardiolipin Ab IgG <14 GPL (< = 14); Anti Cardiolipin Ab IgM <12 MPL (< = 12); Anti-Thrombin III Activity 92 % activity (80-120); B2 Glycoprotein IgA <9 SAU (<=20); B2 Glycoprotein IgG <9 SGU (<=20); B2 Glycoprotein IgM <9 SMU (<=20); Lupus Anticoagulant Negative (Negative); Protein S Functional(Activity) 79 % (70-150)
[2019-02-14] MEDS ORDERED: BISACODYL 5 MG TABEC PO ONE (18:10)
[2019-02-14] MEDS ORDERED: Heparin IV Low Dose *NO* Bolus IV ONE (20:00)
[2019-02-14] MEDS: Heparin Adult LOW DOSE Wt-Based Dextrose 5% 25,000 units/500 mL IV SCH (20:18)
[2019-02-14] MEDS: POLYETHYLENE (MIRALAX) 17 GM PACK PO SCH (21:30)
[2019-02-14] MEDS: ATORVASTATIN 20 MG TAB PO SCH (21:32)
[2019-02-14] MEDS: AMLODIPINE BESYLATE 5 MG TAB PO SCH (21:33)
[2019-02-14] MEDS: LISINOPRIL/HCTZ 20/25MG 1 TAB PO SCH (21:33)
[2019-02-14] MEDS: DOCUSATE SODIUM 100 MG CAP PO SCH (21:47)
[2019-02-14] MEDS: SODIUM CHLORIDE 0.9% 1000ML 1,000 ML IV SCH ×2 (23:22→23:23)
[2019-02-15] MEDS: ACETAMINOPHEN 500 MG TAB PO SCH ×3 (01:54→19:17)
[2019-02-15 02:40] LABS: Partial Thromboplastin Ratio 1.2; Partial Thromboplastin Time 31.3 Seconds (21.0-31.0)
[2019-02-15] MEDS ORDERED: HEPARIN IV BOLUS 4,500 UNITS in SYRINGE 0 ML IV SCH (03:45)
[2019-02-15] MEDS ORDERED: CEFAZOLIN 3000MG 65 ML IV SCH (06:00)
[2019-02-15] MEDS ORDERED: methylPREDNISolone 4 MG TAB PO SCH (07:00)
[2019-02-15] MEDS: GABAPENTIN 600 MG TAB PO SCH ×3 (07:25→20:45)
[2019-02-15] MEDS: POLYETHYLENE (MIRALAX) 17 GM PACK PO SCH ×2 (07:25→20:45)
[2019-02-15] MEDS: DOCUSATE SODIUM 100 MG CAP PO SCH ×2 (07:25→20:45)
[2019-02-15] MEDS ORDERED: CEFAZOLIN 1000MG 1,000 MG/7.5 ML SYR IV ONE (08:41)
[2019-02-15 09:31] LABS: Partial Thromboplastin Ratio 1.4; Partial Thromboplastin Time 38.7 Seconds (21.0-31.0)
--- NOTE | 2019-02-15 10:25 | Orthopedic Progress Note ---
Date of Service February 15, 2019 Assessment & Plan (1) Lumbar disc herniation with radiculopathy: Patient continues to have incapacitating L3 radiculopathy on the right. We have agreed to pursue surgical intervention in order to relieve his pain and allow him to begin ambulating and return to reasonable function. In light of impending surgery pending surgery particularly in the lumbar region we will have to suspend his anticoagulation. He therefore would require a filter to be placed to protect him from any more pulmonary insult. Present on Admission?: Yes Subjective Back and right leg pain Physical Exam Vital Signs (Past 24 Hours): Last Vital Signs Temp 35.8 C L 02/15/19 07:21 Pulse 91 H 02/15/19 07:21 Resp 16 02/15/19 07:21 BP 170/68 H 02/15/19 07:21 Pulse Ox 96 02/15/19 07:21
[2019-02-15] MEDS ORDERED: HEPARIN IV BOLUS 4,500 UNITS in SYRINGE 0 ML IV ONE ×2 (10:30→17:03)
--- NOTE | 2019-02-15 10:43 | Consultation ---
Date of Consultation February 15, 2019 Assessment & Plan (1) Bilateral pulmonary embolism: Pt for IVC filter insertion by Dr Muñoz later today in preparation for spinal surgery next week. Procedure discussed with pt, he expresses understanding and agreement. Will see in office in 2-3 months to discuss possible removal. Patient was seen, examined, and chart reviewed. Agree with exam and treatment plan of the Vascular PA. I have discussed the risks options and benefits of the procedure with the patient. The patient understands the risks options and benefits and agrees to the procedure. Present on Admission?: Yes History of Present Illness Reason for Consultation: IVC filter Attending Physician: Alyssa Krause MD History of Present Illness 58 yo m with hx of DVT/PE, hyperlipidemia, HTN, SRI, admitted with severe back pain and found to have lumbar disk herniation as well as acute BL PE, seen in consultation today for insertion of IVC filter in preparation of interruption of AC for back surgery next week. Pt admits pain, states best if he lies flat on his back. Admits hx of DVT/PE in family members as well. No hypercoagulable workup had been done in past, despite hx of unprovoked DVT/PE in 2008. Stopped AC last year as meds were expensive. Denies DASILVA, fever, chills, chest pain, SOB, abd pain, N/V, rest pain, claudication, wounds/ulcers, other complaints. Allergies Allergy/AdvReac Type Severity Reaction Status Date / Time No Known Allergies Allergy Unverified 02/15/19 13:45 Home Medications Home Medications Medication Instructions Recorded Confirmed Type amlodipine 10 mg PO PM 02/08/19 02/08/19 History atorvastatin 20 mg PO PM 02/08/19 02/08/19 History celecoxib 200 mg PO BIDM 02/08/19 02/08/19 History gabapentin 300 mg PO TID 02/08/19 02/08/19 History lisinopril-hydrochlorothiazide 1 tab PO PM 02/08/19 02/08/19 History naproxen sodium [Aleve] 440 mg PO BID PRN 02/08/19 02/08/19 History prednisone 20 mg PO .TAPER DOSE 02/08/19 02/08/19 History Patient History Medical History HTN (hypertension) (Chronic) HLD (hyperlipidemia) (Chronic) Hx of deep venous thrombosis (Chronic) SRI on CPAP (Chronic) Chronic low back pain (Chronic) DDD (degenerative disc disease) (Chronic) Surgical History History of lumbar surgery (Chronic) History of total knee arthroplasty (Chronic) B/L History of colonoscopy with polypectomy (Chronic) Status post epidural steroid injection (Chronic) Family History Brother Diabetes Father , age 62 Lung cancer Sister Colorectal cancer Other Family history of diabetes mellitus (DM) Social History Communication Ability: Effective Beliefs That Will Affect Care: None marital status: Current Living Situation: Spouse Other Information That Helps Us Care for You: No Feels Safe at Home: Yes Safety Concerns: Feels Safe At This Time Smoking Status: Never smoker Hx Alcohol Use: No Hx Substance Use: No Review of Systems Constitutional: no fever, no chills, no sweats, no fatigue, no malaise and no weight loss Eyes: no blind spots and no problem reported Ear, Nose, Mouth, Throat: no hearing loss and no sore throat Respiratory: no cough, no dyspnea, no dyspnea on exertion and no hemoptysis Cardiovascular: no chest pain, no palpitations, no syncope, no claudication and no problem reported Gastrointestinal: no abdominal pain, no early satiety, no nausea, no vomiting, no cramping, no change in bowel habits, no diarrhea/loose stools and no blood in stools Musculoskeletal: + back pain and + radicular pain; no joint pain, no swelling and no muscle weakness Integumentary: no rash, no non-healing lesions, no skin ulcer, no wounds and no erythema Neurologic: no localized weakness, no generalized weakness, no paralysis, no loss of sensation, no tingling, no numbness, no paresthesia, no seizure-like activity, no syncope, no headache(s) and no confusion Psychiatric: as per Subjective / HPI Hematologic / Lymphatic: no easy bleeding, no easy bruising, no coagulopathy, no night sweats and no unexplained weight loss Physical Exam Vital Signs (Past 24 Hours): Last Vital Signs Temp 35.8 C L 03/22/19 07:21 Pulse 91 H 02/15/19 07:21 Resp 16 02/15/19 07:21 BP 170/68 H 02/15/19 07:21 Pulse Ox 96 02/15/19 07:21 Constitutional: WD/WN, vitals as above well developed, well nourished, + morbidly obese, healthy appearing, well groomed and comfortable; not in distress Eyes: PERRL, conjunctivae normal, anicteric sclerae EOM intact bilaterally ENMT: external ear and nose normal, oropharynx normal Ears: no hearing impairment Nose: no nasal discharge Throat: no posterior oropharynx abnormality Neck: trachea midline, no thyromegaly no tracheal deviation, no neck crepitus and neck nontender Respiratory: normal respiratory effort, lungs clear to auscultation able to speak in complete sentences; does not use accessory muscles, no cough, not tachypneic and no audible wheezes Auscultation: lungs clear to auscultation bilaterally and + diminished lung sounds; no rhonchi and no wheezes Cardiovascular: RRR, no murmur, no edema Heart Sounds: no gallop and no murmur Vessels: normal peripheral pulses, femoral pulses present, posterior tibial pulses present, dorsalis pedis pulses present, brachial pulses present and radial pulses present; no carotid bruit and no femoral bruit Extremities: normal capillary refill; no edema Chest (Breasts): Chest: normal inspection of chest Gastrointestinal (Abdomen): normal bowel sounds, soft, nontender, no hepatosplenomegaly Inspection/Auscultation: abdomen normal to inspection and normal bowel sounds; abdomen not distended Percussion/Palpation: abdomen soft; abdomen nontender, no guarding, abdomen not rigid and no abdominal mass Musculoskeletal: no cyanosis or clubbing, extremities motor strength 5/5 Head/Neck/Chest: normocephalic, head atraumatic and neck supple; normal inspection of chest wall Extremities: extremities normal to inspection and + limited ROM of extremities (BLE); + abnormal strength, no lower leg abnormality and no foot abnormality Skin: no rashes, warm and dry normal turgor; no rashes, no lesions, no ulcers, no dry skin and no excoriations Neurologic: moves all extremities and awake; no focal motor deficits and not confused Speech / Cognition: no expressive aphasia and no receptive aphasia Motor/Sensory: no tremor and no sensory deficit Cranial Nerves: EOM intact bilaterally, normal facial strength and tongue midline Psychiatric: Orientation: alert, oriented x 3, oriented to person, oriented to place, oriented to time and cooperative Apperance: appropriately dressed, appropriately groomed and appeared stated age Affect: euthymic affect Thought Process: goal directed thought process, linear/logical thought process and clear/coherent thought process Cognition: recent memory grossly intact, remote memory grossly intact, attention grossly intact and language grossly intact Estimated Intelligence: average estimated intelligence Lymphatic: no lymphedema
[2019-02-15] MEDS ORDERED: MIDAZOLAM HCL 1 MG/ML 2ML VIAL ONE (14:01)
[2019-02-15] MEDS ORDERED: LIDOCAINE HCL 1% 20 ML VIAL ONE (14:02)
[2019-02-15] MEDS ORDERED: fentaNYL citrate 100 MCG/2 ML VIAL ONE (14:02)
--- NOTE | 2019-02-15 14:22 | Pre Anesthesia Assessment ---
Date of Service February 15, 2019 Pre Sedation Assessment Vital Signs Temp Pulse Resp BP Pulse Ox 02/15/19 13:39 37.1 C 76 18 139/81 95 02/15/19 11:44 37.1 C 79 16 119/68 95 02/15/19 07:21 35.8 C L 91 H 16 170/68 H 96 02/15/19 03:22 36.5 C 98 H 18 135/90 97 02/14/19 22:59 36.9 C 85 18 116/76 95 02/14/19 21:35 154/93 H 02/14/19 19:41 36.9 C 88 18 133/76 96 02/14/19 15:45 37.1 C 92 H 18 157/76 H 94 Cardiovascular RRR, no murmur, no edema Respiratory normal respiratory effort, lungs clear to auscultation Pre-Sedation Airway Assessment Smoking Status: Never smoker Hx Sleep Apnea: No Short, Thick Neck: Yes Thyromental Distance: > or= 3.5 Finger Breadths Oral Cavity: + WNL Mallampati Class: I ASA: ASA2 NPO Status Date of Last Intake of Fluids: 02/14/19 Time of Last Intake of Fluids: 21:00 Date of Last Intake of Solid Food: 02/14/19 Time of Last Intake of Solid Foods: 21:00 Procedure Planning Contraindications for Sedation: none Current Medications Reviewed: Yes Notes The planned sedation has been discussed with the patient. Informed Consent was obtained. I have identified the patient, determined the appropriateness of sedation and have assessed the patient immediately prior to the procedure. All medicine(s) and interventions are by my order.
[2019-02-15] MEDS ORDERED: VISIPAQUE IV PRN (14:39)
--- NOTE | 2019-02-15 14:44 | Post Operative Brief Note ---
Immediate Post Op Note v1 Date of Surgery February 15, 2019 Pre & Post Diagnosis Operation Date: 02/11/19 10:00 <No data on this case meets the specified criteria> Operation Date: 02/15/19 12:50 Pre-Op Diagnosis: Bilateral Pulmonary Emboli Post-Op Diagnosis: Bilateral Pulmonary Emboli Operation Date: 02/18/19 12:55 <No data on this case meets the specified criteria> Procedure Operation Date: 02/11/19 10:00 <No data on this case meets the specified criteria> Operation Date: 02/15/19 12:50 Actual Procedures p Insertion of Venas Cava Filter, Right Jugular Approach, Ultrasound Localization of Right Internal Jugular Vein, Fluoroscopy for Positioning; Moderate Sedation From 1426 to 1446(Right) - Nakul Muñoz MD Operation Date: 02/18/19 12:55 <No data on this case meets the specified criteria> Surgeon Nakul Muñoz MD Straddle Bug MD Celina Estimated Blood Loss 0 Findings Consistent with Post-Op Diagnosis Anesthesia Type RN Sedation Disposition Accompanied Patient To Recovery: No Disposition: Recovery Room
--- NOTE | 2019-02-15 14:48 | Post Anesthesia Assessment ---
Date of Service February 15, 2019 Post Sedation Assessment Vital Signs Temp Pulse Pulse Resp BP Pulse Ox 02/15/19 14:46 79 14 118/83 95 02/15/19 14:41 84 13 118/80 94 02/15/19 14:36 73 17 135/75 98 02/15/19 14:31 76 16 110/80 99 02/15/19 14:26 81 14 134/86 97 02/15/19 14:24 80 14 120/87 93 02/15/19 13:39 37.1 C 76 18 139/81 95 02/15/19 11:44 37.1 C 79 16 119/68 95 02/15/19 07:21 35.8 C L 91 H 16 170/68 H 96 02/15/19 03:22 36.5 C 98 H 18 135/90 97 02/14/19 22:59 36.9 C 85 18 116/76 95 02/14/19 21:35 154/93 H 02/14/19 19:41 36.9 C 88 18 133/76 96 02/14/19 15:45 37.1 C 92 H 18 157/76 H 94 Recovery Score Activity: Moves 2 extremities Respiration: Deep Breath/Cough Circulation: +/-20% PreAnes Value Consciousness: Fully Awake Oxygen Saturation: > 92% On Room Air Post Anesthesia Score: 9 Discharge Sedation Level of Care: Fast Track Phase II Post Sedation Plan On clinical assessment, the patient appears to have tolerated the sedation without complications. Patient is recovering as anticipated. Patient will continue to be monitored by nursing and may be discharged when sedation discharge criteria are met per below protocol. Upon Completions of procedure and additional 15 minutes continue every 5 minute vital signs and the P.A.R. score; then discharge to a Phase I or Fast Track to Phase II per the following guidelines: * Discharge Patient to appropriate Phase II area if PAR is 8 or greater or return to pre- procedure baseline. The post - procedure orders will be as directed. * If PAR score is less than 8 or not return to pre-procedure baseline then patient will follow Phase I monitoring till PAR is reached for Phase II. The Phase I may be done in procedure room or may call to secure a Phase I area. * If naloxone or flumazenil are used for reversal, hold in Phase I for continued monitoring from when last reversal dose was given for a minimum of 60 minutes or longer pending the nurse and/or physician discretion of patient condition before discharge to Phase II. Please call the Sedation Physician to re-evaluate and complete post-note for discharge to Phase II area. Do NOT discharge from procedure sedation or Phase 1 until post- sedation evaluation note is complete by procedure /sedation MD Sedation Discharge Instructions to be given to the patient at discharge to home.
[2019-02-15] MEDS: HYDROmorphone HCL 0.5MG/ML 50 ML CASSETTE IV PRN ×3 (15:51→18:57)
[2019-02-15] MEDS: Heparin Adult LOW DOSE Wt-Based Dextrose 5% 25,000 units/500 mL IV SCH ×3 (15:51→18:45)
[2019-02-15 16:48] LABS: Partial Thromboplastin Ratio 1.5; Partial Thromboplastin Time 40.4 Seconds (21.0-31.0)
--- NOTE | 2019-02-15 18:15 | Hospitalist Progress Note ---
Date of Service February 15, 2019 Assessment & Plan (1) Bilateral pulmonary embolism: CT chest with contrast : Bilateral lower lobe segmental and subsegmental acute PE without CT evidence of right heart strain. 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, stopped taking anticoagulation last year as he could not afford the meds Family history of PE DVT Lower extremity Doppler negative for DVT Appreciate input from hematology oncology, Hypercoagulable workup ordered report still pending Patient will need lifelong anticoagulation according to pulmonary and hematology Will DC Xarelto, patient will be started with IV heparin bridge vascular surgery consulted for IVC filter placement, plan to lumbar decompression surgery on Monday Patient cannot afford Xarelto because of the high co-pay Ideally would be best to be on Coumadin for treatment lifelong 2D echo: 02/08/2019: Study is technically difficult Left ventricular wall motion is normal Left ventricular systolic function is normal ejection fraction 65-70% grade 1 diastolic dysfunction Doppler finding does not suggest pulmonary hypertension Grossly normal right heart size and function Patient remains hemodynamically stable, no hypoxia, no shortness of breath No prior history of [place], cardiomyopathy or CHF Remains moderate to high risk for crissy-and postoperative complications (2) Lumbar disc herniation with radiculopathy: Disc herniation with nerve root impingement and acute flare in the last 3 weeks. MRI of lumbar spine: Moderate multilevel spondylotic change The study is most significant for a right-sided extruded disc herniation at the L2-L3 level, material fills the right lateral recess and likely impinges on the right L3 nerve root Spinal surgery, consulted, appreciate input from Dr. Jose Plan for elective lumbar decompression surgery in 2 weeks Patient was started with IV Dilaudid [employer] pump secondary to intractable pain, Gabapentin increased to 600 mg p.o. 3 times daily for neuropathic pain, added Medrol Dosepak, continue scheduled Tylenol Pain management consulted-recommend to have some spinal decompression surgery done as soon as possible to provide adequate pain medications Discharging with oral p.o. medication for 2 weeks can lead large amount of pain medication intake secondary to severe intractable radiculopathy, narcotic pain medication dependency Case discussed with Dr. Jose, willing to do spinal decompression surgery on Monday, Anesthesia consulted, vascular surgery consulted for IVC filter placement, started on IV heparin infusion, Xarelto discontinued IV heparin can be held one day before once IVC filter is placed (3) Acute exacerbation of chronic low back pain: Due to above spinal surgery following appreciate input (4) HTN (hypertension): Controlled on home amlodipine and lisinopril-HCTZ. (5) SRI on CPAP: Cpap at HS (6) DVT prophylaxis: IV heparin, low-dose no bolus CODE STATUS: Full code Disposition: To be determined, Subjective persisted back pain s/p IVC filter placement no complain of SOB Physical Exam Vital Signs (Past 24 Hours): Last Vital Signs Temp 36.9 C 02/15/19 15:22 Pulse 85 02/15/19 15:22 Resp 18 02/15/19 15:22 BP 128/77 02/15/19 15:22 Pulse Ox 95 02/15/19 15:22 Physical Exam: GENERAL: No sign of distress, HEENT: Sclera nonicteric, pink-purple bilateral equal reactive to light extraocular muscle intact Normal oral mucosa, neck: No JVD, no thyromegaly, trachea midline Lungs: Clear to auscultate, no wheeze or rales Cardiovascular: Regular S1 and S2, no murmur or gallop, no JVD, no lower extremity edema Abdomen: Soft, nontender, bowel sounds active, no hepatosplenomegaly Extremities: No rash or deformity, normal joint, Neuro: No focal neurological deficit, no dysarthria, no facial droop Psych: Alert awake oriented x3: Euthymic Skin: No rash LYMPH NODES: No cervical lymphadenopathy (1) HTN (hypertension) Hypertension type: essential hypertension Qualified Code(s): I10 - Essential (primary) hypertension
[2019-02-15] MEDS: SODIUM CHLORIDE 0.9% 1000ML 1,000 ML IV SCH (20:41)
[2019-02-15] MEDS: LISINOPRIL/HCTZ 20/25MG 1 TAB PO SCH (20:45)
[2019-02-15] MEDS: MAGNESIUM HYDROXIDE SUSP 30 ML UDC PO PRN (20:45)
[2019-02-15] MEDS: ATORVASTATIN 20 MG TAB PO SCH (20:45)
[2019-02-15] MEDS: AMLODIPINE BESYLATE 5 MG TAB PO SCH (20:45)
[2019-02-16 01:57] LABS: Partial Thromboplastin Time 53.2 Seconds (21.0-31.0)
[2019-02-16] MEDS: ACETAMINOPHEN 500 MG TAB PO SCH ×3 (02:06→17:58)
[2019-02-16] MEDS: Heparin Adult LOW DOSE Wt-Based Dextrose 5% 25,000 units/500 mL IV SCH ×2 (06:45→22:37)
[2019-02-16 06:53] LABS: Partial Thromboplastin Ratio 1.7
[2019-02-16] MEDS: GABAPENTIN 600 MG TAB PO SCH ×3 (09:39→20:46)
[2019-02-16] MEDS: MAGNESIUM HYDROXIDE SUSP 30 ML UDC PO PRN ×2 (09:39→20:46)
[2019-02-16] MEDS: POLYETHYLENE (MIRALAX) 17 GM PACK PO SCH ×2 (09:39→20:46)
[2019-02-16] MEDS: DOCUSATE SODIUM 100 MG CAP PO SCH ×2 (09:39→20:46)
--- NOTE | 2019-02-16 18:04 | Hospitalist Progress Note ---
Date of Service February 16, 2019 Assessment & Plan (1) Bilateral pulmonary embolism: CT chest with contrast : Bilateral lower lobe segmental and subsegmental acute PE without CT evidence of right heart strain. 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, stopped taking anticoagulation last year as he could not afford the meds Family history of PE DVT Lower extremity Doppler negative for DVT Appreciate input from hematology oncology, Hypercoagulable workup ordered report still pending Patient will need lifelong anticoagulation according to pulmonary and hematology Will DC Xarelto, patient will be started with IV heparin bridge vascular surgery consulted for IVC filter placement, plan to lumbar decompression surgery on Monday Patient cannot afford Xarelto because of the high co-pay Ideally would be best to be on Coumadin for treatment lifelong 2D echo: 02/08/2019: Study is technically difficult Left ventricular wall motion is normal Left ventricular systolic function is normal ejection fraction 65-70% grade 1 diastolic dysfunction Doppler finding does not suggest pulmonary hypertension Grossly normal right heart size and function Patient remains hemodynamically stable, no hypoxia, no shortness of breath No prior history of [place], cardiomyopathy or CHF Remains moderate to high risk for crissy-and postoperative complications (2) Lumbar disc herniation with radiculopathy: Disc herniation with nerve root impingement and acute flare in the last 3 weeks. MRI of lumbar spine: Moderate multilevel spondylotic change The study is most significant for a right-sided extruded disc herniation at the L2-L3 level, material fills the right lateral recess and likely impinges on the right L3 nerve root Spinal surgery, consulted, appreciate input from Dr. Jose Plan for elective lumbar decompression surgery in 2 weeks Patient was started with IV Dilaudid [employer] pump secondary to intractable pain, Gabapentin increased to 600 mg p.o. 3 times daily for neuropathic pain, added Medrol Dosepak, continue scheduled Tylenol Pain management consulted-recommend to have some spinal decompression surgery done as soon as possible to provide adequate pain medications Discharging with oral p.o. medication for 2 weeks can lead large amount of pain medication intake secondary to severe intractable radiculopathy, narcotic pain medication dependency Case discussed with Dr. Jose, willing to do spinal decompression surgery on Monday, Anesthesia consulted, vascular surgery consulted for IVC filter placement, started on IV heparin infusion, Xarelto discontinued s/p IVC filter placement (3) Acute exacerbation of chronic low back pain: Due to above spinal surgery following appreciate input (4) HTN (hypertension): Controlled on home amlodipine and lisinopril-HCTZ. (5) SRI on CPAP: Cpap at HS (6) DVT prophylaxis: IV heparin, low-dose no bolus CODE STATUS: Full code Disposition: To be determined, Subjective back pain still the same no fever or chills no SOB Physical Exam Vital Signs (Past 24 Hours): Last Vital Signs Temp 37.4 C 02/16/19 16:04 Pulse 94 H 02/16/19 16:04 Resp 17 02/16/19 16:04 BP 134/86 02/16/19 16:04 Pulse Ox 94 02/16/19 16:04 Physical Exam: GENERAL: No sign of distress, HEENT: Sclera nonicteric, pink-purple bilateral equal reactive to light extraocular muscle intact Normal oral mucosa, neck: No JVD, no thyromegaly, trachea midline Lungs: Clear to auscultate, no wheeze or rales Cardiovascular: Regular S1 and S2, no murmur or gallop, no JVD, no lower extremity edema Abdomen: Soft, nontender, bowel sounds active, no hepatosplenomegaly Extremities: No rash or deformity, normal joint, Neuro: No focal neurological deficit, no dysarthria, no facial droop Psych: Alert awake oriented x3: Euthymic Skin: No rash LYMPH NODES: No cervical lymphadenopathy (1) HTN (hypertension) Hypertension type: essential hypertension Qualified Code(s): I10 - Essential (primary) hypertension
[2019-02-16] MEDS: SODIUM CHLORIDE 0.9% 1000ML 1,000 ML IV SCH (20:46)
[2019-02-16] MEDS: AMLODIPINE BESYLATE 5 MG TAB PO SCH (20:46)
[2019-02-16] MEDS: LISINOPRIL/HCTZ 20/25MG 1 TAB PO SCH (20:46)
[2019-02-16] MEDS: ATORVASTATIN 20 MG TAB PO SCH (20:46)
[2019-02-17] MEDS: ACETAMINOPHEN 500 MG TAB PO SCH ×3 (02:23→18:05)
[2019-02-17 06:37] LABS: Partial Thromboplastin Ratio 1.5; Partial Thromboplastin Time 39.4 Seconds (21.0-31.0)
[2019-02-17] MEDS ORDERED: HEPARIN IV BOLUS 4,500 UNITS in SYRINGE 0 ML IV ONE (07:00)
[2019-02-17] MEDS ORDERED: HYDROmorphone INJ 1 MG/ML SYRINGE IV STA (08:28)
[2019-02-17] MEDS: POLYETHYLENE (MIRALAX) 17 GM PACK PO SCH ×2 (10:00→21:15)
[2019-02-17] MEDS: GABAPENTIN 600 MG TAB PO SCH ×3 (10:01→20:49)
--- NOTE | 2019-02-17 11:05 | Orthopedic Progress Note ---
Date of Service February 17, 2019 Assessment & Plan (1) Lumbar disc herniation with radiculopathy: Plan Long discussion with patient today regarding his clinical course and pain patterns. At this time he is anxious to pursue surgery. He will may made n.p.o. after midnight. Surgery is a lumbar decompression possible fusion L2-3. Risk benefits pros cons alternatives again outlined in detail. Present on Admission?: Yes Subjective Patient continues to have severe debilitating right leg pain Physical Exam Vital Signs (Past 24 Hours): Last Vital Signs Temp 36.8 C 02/17/19 07:11 Pulse 89 02/17/19 07:11 Resp 16 02/17/19 07:11 BP 123/76 02/17/19 07:11 Pulse Ox 97 02/17/19 07:11
[2019-02-17] MEDS: DOCUSATE SODIUM 100 MG CAP PO SCH ×2 (12:34→21:15)
[2019-02-17] MEDS: HYDROmorphone INJ 1 MG/ML SYRINGE IV PRN ×2 (15:10→19:06)
--- NOTE | 2019-02-17 16:53 | Hospitalist Progress Note ---
Date of Service February 17, 2019 Assessment & Plan (1) Bilateral pulmonary embolism: IV heparin will be kept on hold for spinal decompression surgery tomorrow will be resumed later when bleeding risk is low post op per spinal orthopedics CT chest with contrast : Bilateral lower lobe segmental and subsegmental acute PE without CT evidence of right heart strain. 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, stopped taking anticoagulation last year as he could not afford the meds Family history of PE DVT Lower extremity Doppler negative for DVT Appreciate input from hematology oncology, Hypercoagulable workup ordered report still pending Patient will need lifelong anticoagulation according to pulmonary and hematology Will DC Xarelto, patient will be started with IV heparin bridge vascular surgery consulted for IVC filter placement, plan to lumbar decompression surgery on Monday IV heparin on hold 12 hrs prior Patient cannot afford Xarelto because of the high co-pay Ideally would be best to be on Coumadin for treatment lifelong 2D echo: 02/08/2019: Study is technically difficult Left ventricular wall motion is normal Left ventricular systolic function is normal ejection fraction 65-70% grade 1 diastolic dysfunction Doppler finding does not suggest pulmonary hypertension Grossly normal right heart size and function Patient remains hemodynamically stable, no hypoxia, no shortness of breath No prior history of MA, cardiomyopathy or CHF Remains moderate to high risk for crissy-and postoperative complications (2) Lumbar disc herniation with radiculopathy: Disc herniation with nerve root impingement and acute flare in the last 3 weeks. MRI of lumbar spine: Moderate multilevel spondylotic change The study is most significant for a right-sided extruded disc herniation at the L2-L3 level, material fills the right lateral recess and likely impinges on the right L3 nerve root Spinal surgery, consulted, appreciate input from Dr. 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 3 times daily for neuropathic pain, added Medrol Dosepak, continue scheduled Tylenol Pain management consulted-recommend to have some spinal decompression surgery done as soon as possible to provide adequate pain medications Discharging with oral p.o. medication for 2 weeks can lead large amount of pain medication intake secondary to severe intractable radiculopathy, narcotic pain medication dependency Case discussed with Dr. Jose, willing to do spinal decompression surgery on Monday, Anesthesia consulted, vascular surgery consulted for IVC filter placement, started on IV heparin infusion, David discontinued anticoagulation on hold for spinal surgery s/p IVC filter placement (3) Acute exacerbation of chronic low back pain: Due to above spinal surgery following appreciate input (4) HTN (hypertension): Controlled on home amlodipine and lisinopril-HCTZ. (5) SRI on CPAP: Cpap at HS (6) DVT prophylaxis: IV heparin on hold ordered for SCD and teds CODE STATUS: Full code Disposition: To be determined, PT/OT eval post surgery may need rehab Subjective schedule for lumber decompression surgery tomorrow back pain still the same no fever or chills no SOB Physical Exam Vital Signs (Past 24 Hours): Last Vital Signs Temp 36.8 C 02/17/19 15:29 Pulse 76 02/17/19 15:29 Resp 17 02/17/19 15:29 BP 119/78 02/17/19 15:29 Pulse Ox 94 02/17/19 15:29 Physical Exam: GENERAL: No sign of distress, HEENT: Sclera nonicteric, pink-purple bilateral equal reactive to light extraocular muscle intact Normal oral mucosa, neck: No JVD, no thyromegaly, trachea midline Lungs: Clear to auscultate, no wheeze or rales Cardiovascular: Regular S1 and S2, no murmur or gallop, no JVD, no lower extremity edema Abdomen: Soft, nontender, bowel sounds active, no hepatosplenomegaly Extremities: No rash or deformity, normal joint, Neuro: No focal neurological deficit, no dysarthria, no facial droop Psych: Alert awake oriented x3: Euthymic Skin: No rash LYMPH NODES: No cervical lymphadenopathy (1) HTN (hypertension) Hypertension type: essential hypertension Qualified Code(s): I10 - Essential (primary) hypertension
[2019-02-17] MEDS: ATORVASTATIN 20 MG TAB PO SCH (20:50)
[2019-02-17] MEDS: AMLODIPINE BESYLATE 5 MG TAB PO SCH (20:50)
[2019-02-17] MEDS: LISINOPRIL/HCTZ 20/25MG 1 TAB PO SCH (20:50)
[2019-02-18] MEDS: ACETAMINOPHEN 500 MG TAB PO SCH ×2 (01:11→09:59)
[2019-02-18] MEDS ORDERED: CEFAZOLIN 3000MG 65 ML IV SCH (06:00)
--- NOTE | 2019-02-18 08:00 | Operative Report ---
DATE OF OPERATION: 02/15/2019 PREOPERATIVE DIAGNOSES: Deep venous thrombosis, pulmonary embolism, contraindication to anticoagulation. POSTOPERATIVE DIAGNOSES: Deep venous thrombosis with pulmonary embolism, contraindication to anticoagulation. PROCEDURE: Ultrasound-guided right IJ access, venacavogram, IVC filter placement, fluoroscopy for positioning, moderate sedation([id number]). SURGEON: Nakul Muñoz MD [facility] [employer] SUPERVISOR: Gabrielle Peterson MD. ESTIMATED BLOOD LOSS: Zero. ANESTHESIA: Moderate sedation plus local. INDICATIONS: Mr. Gary Chavira is a 58-year-old gentleman with history of DVT and PE. He will require spine surgery in the near future and for this reason, his anticoagulation will need to be held for his history of DVT and PE. For this reason, he was recommended to undergo IVC filter placement. The risks, benefits and alternatives were discussed with the patient and he consented to the procedure. DESCRIPTION OF PROCEDURE: The patient was taken to the endovascular suite and placed in the supine position. His right neck was prepped and draped in the usual sterile fashion. A safety timeout was performed to identify the patient, procedure, and sidedness were correctly identified. Ultrasound was used to assess the right IJ and appeared patent. Local anesthesia was used to anesthetize the skin overlying the right IJ. It was accessed with an 18-gauge access needle under ultrasound guidance. An angled Glidewire easily passed through the needle and into the IVC. A small skin luz was made with an 11 blade scalpel. A wire over the needle was removed and the tract was dilated. The IVC filter sheath was placed over the wire and positioned in the infrarenal IVC. The dilator and wire removed and a cavogram was obtained which showed positioning of the renal veins. The filter was introduced into the sheath and deployed in the infrarenal IVC without difficulty. The sheath was removed and manual pressure was held over the IJ access site for several minutes with good hemostasis. A sterile dressing was applied. The patient was awakened and transferred to the recovery area in stable condition. He tolerated the procedure well and there were no immediate complications. Dr. Nakul Muñoz was present for the entire procedure. I attest to the content of the Intraoperative Record and any orders documented therein. Any exceptions are noted below. [facility] PSYCHIATRIC CENTERAngelito
[2019-02-18] MEDS: DOCUSATE SODIUM 100 MG CAP PO SCH ×2 (09:06→20:22)
[2019-02-18] MEDS: POLYETHYLENE (MIRALAX) 17 GM PACK PO SCH (09:07)
[2019-02-18] MEDS: GABAPENTIN 600 MG TAB PO SCH ×3 (09:07→20:22)
[2019-02-18] MEDS: HYDROmorphone INJ 1 MG/ML SYRINGE IV PRN ×3 (10:34→23:07)
--- NOTE | 2019-02-18 13:06 | History & Physical Bridge Note ---
Date of Service February 18, 2019 History & Physical Bridge Note I have examined the patient, reviewed the History & Physical and in the interval since the performance of the History & Physical I have noted the following changes of clinical significance: no changes noted Plan is for a lumbar decompression L2-3 with possible fusion L2-3
[2019-02-18] MEDS ORDERED: BACITRACIN INJ 50,000 UNIT VIAL ONE (13:17)
[2019-02-18] MEDS ORDERED: BUPIVACAINE/EPINEPHRINE 0.5% MPF 1:200,000 30 ML VIAL ONE (13:17)
[2019-02-18] MEDS ORDERED: PROPOFOL IV EMULSION 10 MG/ML 20 ML VIAL IV ONE (13:19)
[2019-02-18] MEDS ORDERED: ROCURONIUM BROMIDE 10 MG/ML 5 ML VIAL ONE (13:19)
[2019-02-18] MEDS ORDERED: MIDAZOLAM HCL 1 MG/ML 2ML VIAL ONE (13:20)
[2019-02-18] MEDS ORDERED: fentaNYL citrate 100 MCG/2 ML VIAL ONE ×2 (13:20→13:59)
[2019-02-18] MEDS ORDERED: CEFAZOLIN 3000MG/72.5 ML BAG IV ONE (13:25)
--- NOTE | 2019-02-18 13:28 | Anesthesiology Consultation ---
Date of Service February 18, 2019 Assessment & Plan Chart Review Chart Review: Acceptable Risk for Surgery Consults Requested none NPO Date Last Intake of Fluids: 02/17/19 Time Last Intake of Fluids: 21:00 Date Last Intake of Solids: 02/17/19 Time Last Intake of Solids: 20:30 Last Intake of Solids Comment: dinner History Surgery Operation Date: 02/11/19 10:00 Proposed Procedures p Posterior Fusion Instrumentation - Man Jose DO Operation Date: 02/15/19 12:50 Proposed Procedures p Inferior Vena Cava Filter Placement - Nakul Muñoz MD Operation Date: 02/18/19 12:55 Proposed Procedures p L2-L3 Lumbar Decompression, Possible Fusion - Man Jose DO Height/Weight Height: 6 ft 1 in Weight: 141.9 kg Allergies Allergy/AdvReac Type Severity Reaction Status Date / Time No Known Allergies Allergy Unverified 02/15/19 13:45 Medications Home Medications Medication Instructions Recorded Confirmed Last Taken amlodipine 10 mg PO PM 02/08/19 02/08/19 02/07/19 atorvastatin 20 mg PO PM 02/08/19 02/08/19 02/07/19 celecoxib 200 mg PO BIDM 02/08/19 02/08/19 02/08/19 gabapentin 300 mg PO TID 02/08/19 02/08/19 02/08/19 lisinopril-hydrochlorothiazide 1 tab PO PM 02/08/19 02/08/19 02/07/19 naproxen sodium [Aleve] 440 mg PO BID PRN 02/08/19 02/08/19 02/08/19 06:00 prednisone 20 mg PO .TAPER DOSE 02/08/19 02/08/19 02/07/19 Active Medications Generic Name Dose Route Start Last Admin Trade Name Freq PRN Reason Stop Dose Admin Acetaminophen 1,000 mg 02/09/19 18:00 02/18/19 09:59 Tylenol PO 03/11/19 17:59 Not Given Q8H LUIS Amlodipine Besylate 10 mg 02/08/19 21:00 02/17/19 20:50 Norvasc PO 03/10/19 20:59 10 mg PM LUIS Administration Atorvastatin Calcium 20 mg 02/08/19 21:00 02/17/19 20:50 Lipitor PO 03/10/19 20:59 20 mg PM LUIS Administration Docusate Sodium 100 mg 02/14/19 21:00 02/18/19 09:06 Colace PO 03/16/19 20:59 Not Given BID LUIS Gabapentin 600 mg 02/11/19 21:00 02/18/19 13:01 Neurontin PO 03/13/19 20:59 Not Given TID LUIS Lisinopril/HCTZ 1 tab 02/08/19 21:00 02/17/19 20:50 Prinzide 20/25mg PO 03/10/19 20:59 1 tab PM LUIS Administration Hydromorphone HCl 1 mg 02/17/19 08:28 02/18/19 10:34 Dilaudid IV 03/03/19 08:27 1 mg Q4 PRN Administration Pain Iodixanol 20 ml 02/15/19 14:39 02/15/19 14:40 Visipaque IV 02/19/19 14:38 20 ml UD PRN Administration now Magnesium Hydroxide 30 ml 02/08/19 17:10 02/16/19 20:46 Milk Of Magnesia PO 03/10/19 17:09 30 ml Q12H PRN Administration Constipation Ondansetron HCl 4 mg 02/08/19 17:10 02/18/19 10:35 Zofran IV 03/10/19 17:09 4 mg Q6H PRN Administration Nausea Polyethylene Glycol 17 gm 02/14/19 21:00 02/18/19 09:07 Miralax Powder Packet PO 03/16/19 20:59 Not Given BID LUIS Past Medical History Medical History HTN (hypertension) (Chronic) HLD (hyperlipidemia) (Chronic) Hx of deep venous thrombosis (Chronic) SRI on CPAP (Chronic) Chronic low back pain (Chronic) DDD (degenerative disc disease) (Chronic) Past Family History Family History Brother Diabetes Father , age 62 Lung cancer Sister Colorectal cancer Other Family history of diabetes mellitus (DM) Past Surgical History Surgical History History of lumbar surgery (Chronic) History of total knee arthroplasty (Chronic) B/L History of colonoscopy with polypectomy (Chronic) Status post epidural steroid injection (Chronic) Social History Smoking Status: Never smoker Hx Alcohol Use: No alcohol intake frequency: a few times a month Hx Substance Use: No substance use type: does not use Physical Exam Vital Signs Last Vital Signs Temp 37.2 C 02/18/19 13:08 Pulse 88 02/18/19 13:08 Resp 18 02/18/19 13:08 BP 146/79 H 02/18/19 13:08 Pulse Ox 94 02/18/19 13:08 Testing Laboratory Results 02/12/19 07:33 02/12/19 07:33 Blood Type A Positive 02/17/19 05:59 Antibody Screen NEGATIVE 02/17/19 05:59 PT 10.6 Seconds (9.0-12.0) 02/08/19 11:35 INR 1.0 (0.9-1.1) 02/08/19 11:35 APTT 39.4 Seconds (21.0-31.0) H 02/17/19 05:59 Urine Color Dark Yellow 02/08/19 18:20 Urine Appearance Clear (Clear) 02/08/19 18:20 Urine pH 5.5 (4.5-7.5) 02/08/19 18:20 Ur Specific [place] > 1.045 (1.000-1.030) H 02/08/19 18:20 Urine Protein Negative (Negative) 02/08/19 18:20 Urine Glucose (UA) Negative (Negative) 02/08/19 18:20 Urine Ketones Negative (Negative) 02/08/19 18:20 Urine Nitrite Negative (Negative) 02/08/19 18:20 Ur Leukocyte Esterase Negative (Negative) 02/08/19 18:20
[2019-02-18] MEDS ORDERED: ONDANSETRON INJ 2 MG/ML 2 ML VIAL IV PRN ×2 (13:29→16:26)
[2019-02-18] MEDS ORDERED: DEXAMETHASONE SOD INJ 4 MG/ML VIAL IV PRN (13:29)
[2019-02-18] MEDS ORDERED: ePHEDrine sulfate 50 MG/ML AMP IV PRN (13:29)
[2019-02-18] MEDS ORDERED: HYDROmorphone INJ 2 MG/ML SYR/VIAL IV PRN (13:29)
[2019-02-18] MEDS ORDERED: ATROPINE SULFATE 0.1 MG/ML 10ML SYR IV PRN (13:29)
[2019-02-18] MEDS ORDERED: FLOSEAL HEMOSTATIC MATRIX 10ML TOP ONE (14:08)
--- NOTE | 2019-02-18 14:45 | Operative Report ---
Post Operative Report Pre & Post Diagnosis Operation Date: 02/11/19 10:00 <No data on this case meets the specified criteria> Operation Date: 02/15/19 12:50 Pre-Op Diagnosis: Bilateral pulmonary emboli Post-Op Diagnosis: Bilateral Pulmonary Emboli Operation Date: 02/18/19 12:55 Pre-Op Diagnosis: Lumbar disc herniation with radiculopathy Post-Op Diagnosis: Lumbar disc herniation with radiculopathy Procedure Operation Date: 02/11/19 10:00 <No data on this case meets the specified criteria> Operation Date: 02/15/19 12:50 Actual Procedures p Insertion of Venas Cava Filter, Right Jugular Approach, Ultrasound Localization of Right Internal Jugular Vein, Fluoroscopy for Positioning; Moderate Sedation From 1426 to 1446.(Right) - Nakul Muñoz MD Operation Date: 02/18/19 12:55 Actual Procedures p L2-L3 Lumbar Decompression - Mna Jose DO Surgeon Man Jose DO Aluminum Molder MD Celina Estimated Blood Loss 0 I attest to the content of the Intraoperative Record and any orders documented therein. Any exceptions are noted below.
--- NOTE | 2019-02-18 14:48 | Operative Report ---
Post Operative Report Pre & Post Diagnosis Operation Date: 02/11/19 10:00 <No data on this case meets the specified criteria> Operation Date: 02/15/19 12:50 Pre-Op Diagnosis: Bilateral Pulmonary Emboli Post-Op Diagnosis: Bilateral Pulmonary Emboli Operation Date: 02/18/19 12:55 Pre-Op Diagnosis: Lumbar disc herniation with radiculopathy Post-Op Diagnosis: Lumbar disc herniation with radiculopathy Procedure Operation Date: 02/11/19 10:00 <No data on this case meets the specified criteria> Operation Date: 02/15/19 12:50 Actual Procedures p Insertion of Venas Cava Filter, Right Jugular Approach, Ultrasound Localization of Right Internal Jugular Vein, Fluoroscopy for Positioning; Moderate Sedation From 1426 to 1446.(Right) - Nakul Muñoz MD Operation Date: 02/18/19 12:55 Actual Procedures #1 lumbar decompression bilateral medial facetectomies. #2 discectomy removal of herniated free fragment L2-3 on the right. Surgeon Man Jose DO Pulmonologist MD Celina Estimated Blood Loss 0 Findings Consistent with Post-Op Diagnosis Specimens None Description of Procedure Patient was met with preoperatively case discussed all questions addressed. After informed consent obtained patient was taken to the operative suite underwent intubation and placed in the prone position the Moses table on top of the Greg frame. All bony prominences well-padded eyes inspected to ensure no external pressure placed upon but this point the lumbar spine was prepped and draped in a sterile fashion. With the assistance of fluoroscopy identified the 2 3 disc space and sharp dissection with the assistance of Bovie cautery was performed down to and exposing the intralaminar space at L2-3 bilaterally. And then performed a midline decompression including bilateral medial facetectomies to address significant stenosis. And then was able to identify herniated free fragment on the right with marked compression traversing L3 nerve root. This was removed in its entirety. Area was explored several times to ensure all loose fragments were addressed. Then copious irrigated 15 round MONICA drain inserted. And closed with 1 Vicryl in the fascia 2-0 Vicryl subtenons seen for Monocryl for final skin closure. Please note Smitha Jesus present at the entire procedure involved in patient positioning complex portions of the surgery and final skin closure. I attest to the content of the Intraoperative Record and any orders documented therein. Any exceptions are noted below.
[2019-02-18] MEDS ORDERED: GLYCOPYRROLATE 0.2 MG/ML VIAL ONE (15:06)
[2019-02-18] MEDS ORDERED: NEOSTIGMINE METHYLSULFATE 1 MG/ML 10ML VIAL ONE (15:06)
[2019-02-18] MEDS ORDERED: ONDANSETRON INJ 2 MG/ML 2 ML VIAL ONE (15:06)
[2019-02-18] MEDS ORDERED: DEXAMETHASONE SOD INJ 4 MG/ML VIAL ONE (15:06)
--- NOTE | 2019-02-18 15:15 | Fluoroscopy Report ---
LUMBAR SPINE, INTRAOPERATIVE FLUOROSCOPY HISTORY: L2-L3 decompression. FLUOROSCOPY TIME: 8 seconds. FINDINGS: Intraoperative fluoroscopy was provided for the lumbar spine. A single fluoroscopic spot im age of the lower lumbar spine demonstrates surgical measurements at the L2 and L3 levels.. IMPRESSION: Fluoroscopy provided for a L2-L3 decompression. Electronically signed by: Varghese Francisco M.D. 02/18/2019 3:14 PM
[2019-02-18] MEDS: fentaNYL citrate 100 MCG/2 ML VIAL IV PRN ×2 (15:26→15:38)
--- NOTE | 2019-02-18 15:51 | Anesthesiology Progress Note ---
Date of Service February 18, 2019 Anesthesia Post Procedure Vital Signs Vital Signs: Temp Pulse Pulse Resp BP BP Pulse Ox 02/18/19 15:30 83 18 133/75 94 02/18/19 15:20 75 21 126/71 100 02/18/19 15:10 74 12 111/78 98 02/18/19 15:00 36.5 C 91 H 21 164/98 H 98 02/18/19 13:08 37.2 C 88 18 146/79 H 94 02/18/19 12:06 37.1 C 80 16 99/62 L 91 02/18/19 07:43 36.6 C 94 H 16 106/71 94 02/17/19 23:48 36.7 C 83 18 104/67 94 02/17/19 20:49 86 118/76 96 Pain Intensity Right Leg: Pain Intensity: 6 Back: Pain Intensity: 5 Notes Mental Status: alert / awake / arousable Patient Amnestic to Procedure: Yes Nausea / Vomiting: adequately controlled Pain: adequately controlled Airway Patency, RR, SpO2: stable & adequate BP & HR: stable & adequate Hydration State: stable & adequate Anesthetic Complications: no major complications apparent
--- NOTE | 2019-02-18 16:08 | Hospitalist Progress Note ---
Date of Service February 18, 2019 Assessment & Plan (1) Status post lumbar spine surgery for decompression of spinal cord: s/p lumber decompression surgery today POD#1 recovering well post op cont to hold anticoagulation till accepable bleeding risk as per spinal orthopedics ordered for H&H in AM to assess post op /acute blood loss anemia appreciate help and input from spinal ortho (2) Bilateral pulmonary embolism: IV heparin will be kept on hold for spinal decompression surgery tomorrow will be resumed later when bleeding risk is low post op per spinal orthopedics CT chest with contrast : Bilateral lower lobe segmental and subsegmental acute PE without CT evidence of right heart strain. 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, stopped taking anticoagulation last year as he could not afford the meds Family history of PE DVT Lower extremity Doppler negative for DVT 2D echo: 02/08/2019: Study is technically difficult Left ventricular wall motion is normal Left ventricular systolic function is normal ejection fraction 65-70% grade 1 diastolic dysfunction Doppler finding does not suggest pulmonary hypertension Grossly normal right heart size and function Appreciate input from hematology oncology, Hypercoagulable workup ordered report still pending Patient will need lifelong anticoagulation according to pulmonary and hematology Will DC Xarelto, patient will be started with IV heparin bridge vascular surgery consulted for IVC filter placement, s/p lumbar decompression today IV heparin was on hold hold 12 hrs prior anticoagulation will be resumed after D/w spinal ortho will not need bleed therapy can be started on Coumadin or Xaralto pt prefers NOACs over coumadin as blood work will not be needed need to check prescription coverage for Xaralto (3) Lumbar disc herniation with radiculopathy: s/p lumber decompression surgery by Dr Jose POD # 0 Disc herniation with nerve root impingement and acute flare in the last 3 weeks. MRI of lumbar spine: Moderate multilevel spondylotic change The study is most significant for a right-sided extruded disc herniation at the L2-L3 level, material fills the right lateral recess and likely impinges on the right L3 nerve root s/p IVC filter placement anticoagulation to be resumed no bridge therapy as per spinal ortho recommendation post top (4) Acute exacerbation of chronic low back pain: Due to above s/p lumber spine decompression surgery (5) HTN (hypertension): Controlled on home amlodipine and lisinopril-HCTZ. (6) SRI on CPAP: Cpap at HS (7) DVT prophylaxis: ordered for SCD and teds CODE STATUS: Full code Disposition: To be determined, PT/OT eval post surgery may need rehab Subjective S/p lumber decompression surgery today had uncomplicated intra and post operative period pt seen in room 352/2 post op denies of any SOB , chest heaviness no hypoxia , in room air has pain at surgical site resolution of radiation pain Physical Exam Vital Signs (Past 24 Hours): Last Vital Signs Temp 36.1 C L 02/18/19 15:40 Pulse 80 02/18/19 16:00 Resp 18 02/18/19 16:00 BP 118/70 02/18/19 16:00 Pulse Ox 96 02/18/19 16:00 Physical Exam: GENERAL: No sign of distress, HEENT: Sclera nonicteric, pink-purple bilateral equal reactive to light extraocular muscle intact Normal oral mucosa, neck: No JVD, no thyromegaly, trachea midline Lungs: Clear to auscultate, no wheeze or rales Cardiovascular: Regular S1 and S2, no murmur or gallop, no JVD, no lower extremity edema Abdomen: Soft, nontender, bowel sounds active, no hepatosplenomegaly Extremities: S/p Lumber decompression surgery Neuro: No focal neurological deficit, no dysarthria, no facial droop Psych: Alert awake oriented x3: Euthymic Skin: No rash LYMPH NODES: No cervical lymphadenopathy (1) HTN (hypertension) Hypertension type: essential hypertension Qualified Code(s): I10 - Essential (primary) hypertension
[2019-02-18] MEDS ORDERED: LORazepam 1 MG TAB PO PRN (16:26)
[2019-02-18] MEDS ORDERED: SODIUM CHLORIDE 0.9% 1000ML 1,000 ML IV SCH (16:26)
[2019-02-18] MEDS ORDERED: OXYCODONE HCL IR 5 MG TAB (IMMEDIATE RELEASE) PO PRN (16:26)
[2019-02-18] MEDS ORDERED: ACETAMINOPHEN 325 MG TAB PO PRN (16:26)
[2019-02-18] MEDS ORDERED: LORazepam 1 MG/2 ML VIAL IV PRN (16:26)
[2019-02-18] MEDS ORDERED: MAGNESIUM HYDROXIDE SUSP 30 ML UDC PO PRN (16:26)
[2019-02-18] MEDS: LISINOPRIL/HCTZ 20/25MG 1 TAB PO SCH (20:22)
[2019-02-18] MEDS: AMLODIPINE BESYLATE 5 MG TAB PO SCH (20:22)
[2019-02-18] MEDS: ATORVASTATIN 20 MG TAB PO SCH (20:23)
[2019-02-18] MEDS: CEFAZOLIN 2000MG 2,000 MG/15 ML SYR IV SCH (20:23)
[2019-02-19] MEDS: CEFAZOLIN 2000MG 2,000 MG/15 ML SYR IV SCH ×2 (05:29→12:43)
[2019-02-19] MEDS: GABAPENTIN 600 MG TAB PO SCH ×3 (08:45→20:56)
[2019-02-19] MEDS: DOCUSATE SODIUM 100 MG CAP PO SCH ×2 (08:45→20:56)
--- NOTE | 2019-02-19 10:59 | Orthopedic Progress Note ---
Date of Service February 19, 2019 Assessment & Plan (1) Lumbar disc herniation with radiculopathy: Patient is experiencing marked improvement in his right leg symptoms. He is been up and ambulating last evening and today. Our plan is to maintain the MONICA drain until tomorrow possibly discharge home tomorrow. He may begin the Xarelto on . Present on Admission?: Yes Subjective Back pain is controlled right leg symptoms markedly improved. Physical Exam Vital Signs (Past 24 Hours): Last Vital Signs Temp 37.2 C 02/19/19 07:10 Pulse 89 02/19/19 07:10 Resp 18 02/19/19 07:10 BP 110/71 02/19/19 07:10 Pulse Ox 94 02/19/19 07:10 Physical Exam: On exam patient is similar bed he appears quite comfortable. Is excellent strength testing.
--- NOTE | 2019-02-19 17:41 | Hospitalist Progress Note ---
Date of Service February 19, 2019 Assessment & Plan (1) Status post lumbar spine surgery for decompression of spinal cord: S/P lumbar decompression bilateral medial facetectomies; discectomy removal of herniated free fragment L2-3 on the right. POD # 1 Pain is well Controlled PT/OT Patient not interested in rehab placement Plan to resume anticoagulation on 02/21 (Was on Xarelto previously) Wound Care Monitor CBC Appreciate Orthopedics help (2) Bilateral pulmonary embolism: CTA: Bilateral lower lobe segmental and subsegmental acute pulmonary emboli without CT evidence of right heart strain. Patient stopped taking Xarelto due to Insurance issues IV heparin discontinued Plan to resume anticoagulation on 02/21 (Was on Xarelto previously) H/O DVT/PE Family H/O PE/DVT S/P IVC filter placement Lower extremity Doppler negative for DVT Anticoagulation as above Appreciate hematology/oncology Input Patient needs lifelong anticoagulation according to pulmonary and hematology (3) Lumbar disc herniation with radiculopathy: s/p lumber decompression surgery by Dr Jose management as above (4) Acute exacerbation of chronic low back pain: as above (5) HTN (hypertension): Stable Continue amlodipine, lisinopril-HCTZ. (6) SRI on CPAP: CPAP QHS (7) DVT prophylaxis: SCDs for now CODE STATUS: Full code Disposition: PT/OT prior to discharge Subjective Patient is seen and examined at bedside Back pain is well controlled Offers no complaints Denies chest pain, SOB, dizziness Discussed with Orthopedics today Physical Exam Vital Signs (Past 24 Hours): Last Vital Signs Temp 37.0 C 02/19/19 15:27 Pulse 95 H 02/19/19 15:27 Resp 18 02/19/19 15:27 BP 101/68 02/19/19 15:27 Pulse Ox 96 02/19/19 15:27 Physical Exam: Physical Exam: Vitals signs as noted above General Appearance:Moderately built and nourished, no apparent distress Head: normocephalic, Atraumatic Eyes: normal inspection, EOMI Neck: supple, Trachea midline Respiratory/Chest: Normal breath sounds, CTA Cardiovascular: S1, S2, No murmur Abdomen/GI:Soft, Non tender, Bowel sounds present Back:Surgical site in dressing Extremities/Musculoskelatal:normal inspection, no edema Neurologic/Psych:AAOX3, grossly no focal neurological deficits Skin: normal color, warm (1) HTN (hypertension) Hypertension type: essential hypertension Qualified Code(s): I10 - Essential (primary) hypertension
[2019-02-19] MEDS: LISINOPRIL/HCTZ 20/25MG 1 TAB PO SCH (20:56)
[2019-02-19] MEDS: ATORVASTATIN 20 MG TAB PO SCH (20:56)
[2019-02-19] MEDS: AMLODIPINE BESYLATE 5 MG TAB PO SCH (20:56)
[2019-02-20] MEDS ORDERED: BISACODYL 5 MG TABEC PO PRN (06:00)
[2019-02-20 07:44] LABS: Hematocrit (blood only) 45.1 % (42-52); Hemoglobin 14.8 g/dL (14.0-18.0); Mean Corpuscular Hgb Conc 32.8 g/dL (32-36); Mean Corpuscular Volume 86.1 fL (80-100); Mean Platelet Volume 10.2 fL (7.4-10.4); Platelet Count 170 K/uL (130-400); RDW Coefficient of Variation 15.1 % (11.5-14.5); RDW Standard Deviation 48.2 fL (36.4-46.3); Red Blood Count 5.24 M/uL (4.7-6.1); White Blood Count 10.55 K/uL (4.8-10.8)
[2019-02-20] MEDS: DOCUSATE SODIUM 100 MG CAP PO SCH (08:11)
[2019-02-20] MEDS: GABAPENTIN 600 MG TAB PO SCH ×2 (08:11→14:36)
[2019-02-20 08:21] LABS: BUN Creatinine Ratio 20.1 (10-20); Calcium 8.7 mg/dl (8.5-10.1); Creatinine Clr Calc Pharmacy 114.2 ml/min; Est GFR (African American) 89.5; Est GFR (Non-African American) 77.2; Potassium 3.8 mmol/L (3.5-5.1)
--- NOTE | 2019-02-20 13:23 | Hospitalist Progress Note ---
Date of Service February 20, 2019 Assessment & Plan (1) Status post lumbar spine surgery for decompression of spinal cord: S/P lumbar decompression bilateral medial facetectomies; discectomy removal of herniated free fragment L2-3 on the right. POD # 2 Pain is well Controlled PT/OT Patient not interested in rehab placement Plan to resume anticoagulation on 02/21 (Was on Xarelto previously) Continue Wound Care Monitor CBC Appreciate Orthopedics help (2) Bilateral pulmonary embolism: CTA: Bilateral lower lobe segmental and subsegmental acute pulmonary emboli without CT evidence of right heart strain. Patient stopped taking Xarelto due to Insurance issues IV heparin discontinued Plan to resume anticoagulation on 02/21 (Was on Xarelto previously) H/O DVT/PE Family H/O PE/DVT S/P IVC filter placement Lower extremity Doppler negative for DVT Anticoagulation as above Appreciate hematology/oncology Input Patient needs lifelong anticoagulation according to pulmonary and hematology (3) Lumbar disc herniation with radiculopathy: s/p lumber decompression surgery by Dr Jose management as above (4) Acute exacerbation of chronic low back pain: as above (5) HTN (hypertension): Stable Continue amlodipine, lisinopril-HCTZ. (6) SRI on CPAP: CPAP QHS (7) DVT prophylaxis: SCDs for now CODE STATUS: Full code Disposition: Plan to discharge home today Subjective Patient is seen and examined at bedside Doing well today No new complaints Back pain is controlled Denies chest pain, SOB, dizziness Discussed with Orthopedics today Had dressing change today Physical Exam Vital Signs (Past 24 Hours): Last Vital Signs Temp 37.2 C 02/20/19 11:48 Pulse 99 H 02/20/19 11:48 Resp 20 02/20/19 11:48 BP 102/69 02/20/19 11:48 Pulse Ox 94 02/20/19 11:48 Physical Exam: Physical Exam: Vitals signs as noted above General Appearance:Moderately built and nourished, no apparent distress Head: normocephalic, Atraumatic Eyes: normal inspection, EOMI Neck: supple, Trachea midline Respiratory/Chest: Normal breath sounds, CTA Cardiovascular: S1, S2, No murmur Abdomen/GI:Soft, Non tender, Bowel sounds present Back:Surgical site in dressing Extremities/Musculoskelatal:normal inspection, no edema Neurologic/Psych:AAOX3, grossly no focal neurological deficits Skin: normal color, warm Results & Data Laboratory Results Short CBC 02/20/19 Range/Units 07:04 WBC 10.55 (4.8-10.8) K/uL Hgb 14.8 (14.0-18.0) g/dL Hct 45.1 (42-52) % Plt Count 170 (130-400) K/uL BMP 02/20/19 07:04 Sodium 137 Potassium 3.8 Chloride 104 Carbon Dioxide 28 BUN 22 H Creatinine 1.07 Glucose 99 Calcium 8.7 (1) HTN (hypertension) Hypertension type: essential hypertension Qualified Code(s): I10 - Essential (primary) hypertension
--- NOTE | 2019-02-20 13:45 | Discharge Summary ---
Date of Service February 20, 2019 Admission HPI Per Admitting Provider This is a 58 year old male with significant pmh of DVT/PE previously treated with xarelto but discontinued by pt due to cost 1.5 mo ago, HTN, HLD, SRI on CPAP, chronic low back pain due to DDD who presents to [facility] ED secondary to low back pain x 2 weeks. and son at bedside. Pt initially seen in [facility] ED 01/29/19 due to pain. He was given dilaudid, percocet, flexeril. CT imaging revealed spinal stenosis with chronic DDD. He was discharged home. Followed up with PCP on 01/31 still experiencing significant pain in which ortho referral was made, given Medrol 40mg IM and placed on prednisone taper. Also of note at that visit was he discontinued his xarelto approx 1.5mo ago due to cost. Appears he had been noncompliant with coumadin in past as well. Initially dx with DVT post op lumbar surgery back in 2008 and has been anticoagulated ever since. Denies hx of hypercoagulable state, family hx or work up. Presents to ED today due to severe low back pain with radiculopathy to RLE. Pain initially started 2 weeks ago while standing in shower. Developed sharp, stabbing pain to right side low back that radiates down buttock and to anterior lower extremity, constant but waxes and wanes in severity, made worse with walking and movement, improved with lying on side. Minimal improvement with steroids, no improvement with hydrocodone. Denies numbess or tingling or loss of bowel or bladder. Denies recent illness, f/c/s, chest pain, sob, christina, hemoptysis, n/v/d, change in bowel or bladder habits. Initially hurt low back in 2008 when he had 3 square bails of hay and fork fall on him. This resulted in a lumbar spinal surgery, "I had L5 removed down in [place]." Had flare approx 2 years ago in which he was seen by Dr. Jose who recommended surgery at the time. Patient opted to continue non surgical treatment at that time. He has had numerous epidural injections which have alleviated symptoms, last in 08/2017. Admission Exam Per Admitting Provider Gen: WD/WN, Morbidly Obese M, NAD, sitting up in bed, pleasant, conversing easily Head: Normocephalic, Atraumatic Eyes: Sclera normal, no conjunctival injection, PERRLA, EOMI ENT: Gross hearing intact, normal pharynx, mucous membranes moist Neck: supple, no adenopathy, No JVD, no bruit, Resp: Clear to auscultation b/l, no wheeze, rales, rhonchi. Normal insp/exp effort, no accessory muscle use CV: Regular rate, regular rhythm, no murmur, rub, gallop, or ectopy Abd:Protuberant abdomen +BS x 4, soft, nontender, nondistended Musculoskeletal: moves extremities active rom x 4, Pain with RLE movement, +SLR, painful palpation to R SI joint and into buttock, strength intact, good carboy filler strength Extremities: No edema bilaterally Skin: warm, moist, no rash, negative turgor, cap refill < 2sec Neuro: Alert and oriented x 3, speech normal, good mood/affect, cran nerve 2-12 intact grossly : deferred Principal Diagnosis Discharge Information Discharge Diagnosis Lumbar disc herniation with radiculopathy Bilateral pulmonary embolism Discharge Goals Decrease discomfort,Improve disease control, Improve function Discharge Activity Limitations Per instructions/follow-up Discharge Data Allergies Allergy/AdvReac Type Severity Reaction Status Date / Time No Known Allergies Allergy Unverified 02/15/19 13:45 Consultations 02/08/19 14:45 ED Decision to Admit Stat 02/08/19 17:10 Consult Case Management - Discharge Planning Routine Consult Orthopedic Surgery Routine 02/10/19 12:33 Consult Hematology Routine 02/11/19 13:09 Consult Pulmonology Routine 02/14/19 12:25 Consult Vascular Surgery Routine 02/14/19 12:26 Consult Anesthesiology Routine Procedures Performed Operation Date: 02/11/19 10:00 <No data on this case meets the specified criteria> Operation Date: 02/15/19 12:50 Actual Procedures p Insertion of Venas Cava Filter, Right Jugular Approach, Ultrasound Localization of Right Internal Jugular Vein, Fluoroscopy for Positioning; Moderate Sedation From 1426 to 1446.(Right) - Nakul Muñoz MD Operation Date: 02/18/19 12:55 Actual Procedures p L2-L3 Lumbar Decompression - Man Jose, CTA: 1. Bilateral lower lobe segmental and subsegmental acute pulmonary emboli without CT evidence of right heart strain. 2. Mild cardiomegaly with findings suggesting volume overload/congestive change. Findings worrisome for developing pulmonary edema. 3. Suspected hepatic steatosis. Lumbar CT: 1. Mild superior endplate compression deformity at L3. This is test age- indeterminate but likely old. No definite acute fractures within the lumbar spine. 2. L5-S1 posterior decompression. 3. Multilevel degenerative changes as described above most pronounced at the L4- L5 level where there is moderate central canal and moderate bilateral neural foraminal narrowing. Venous Doppler: No evidence of deep venous thrombosis. MRI lumbar Spine: 1. Moderate multilevel spondylitic change. 2. The study is most significant for a right-sided extruded disc herniation at the L2-3 level. Disc material fills the right lateral recess and likely impinges on the right L3 nerve root. Ordered Studies 02/08/19 11:20 CT angio chest PE protocol Stat CT lumbar spine wo con Stat 02/08/19 11:23 US venous doppler LE RT Stat 02/08/19 17:10 MR lumbar spine wo con Routine 02/10/19 12:33 US venous doppler LE LT Urgent 02/15/19 13:37 EV IVC filter placement Routine 02/18/19 13:44 FL fluoroscopy <1hr Routine FL lumbar spine 2-3V Routine Hospital Course (1) Status post lumbar spine surgery for decompression of spinal cord: S/P lumbar decompression bilateral medial facetectomies; discectomy removal of herniated free fragment L2-3 on the right. POD # 2 Pain is well Controlled PT/OT Patient not interested in rehab placement Plan to resume anticoagulation on 02/21 (Was on Xarelto previously) Continue Wound Care Monitor CBC Appreciate Orthopedics help (2) Bilateral pulmonary embolism: CTA: Bilateral lower lobe segmental and subsegmental acute pulmonary emboli without CT evidence of right heart strain. Patient stopped taking Xarelto due to Insurance issues IV heparin discontinued Plan to resume anticoagulation on 02/21 (Was on Xarelto previously) H/O DVT/PE Family H/O PE/DVT S/P IVC filter placement Lower extremity Doppler negative for DVT Anticoagulation as above Appreciate hematology/oncology Input Patient needs lifelong anticoagulation according to pulmonary and hematology (3) Lumbar disc herniation with radiculopathy: s/p lumber decompression surgery by Dr Jose management as above (4) Acute exacerbation of chronic low back pain: as above (5) HTN (hypertension): Stable Continue amlodipine, lisinopril-HCTZ. (6) SRI on CPAP: CPAP QHS (7) DVT prophylaxis: SCDs for now CODE STATUS: Full code Disposition: Plan to discharge home today Total Time Total Time Spent Total Time Spent (In Minutes): 45 minutes Total Time Includes: Examination of the Patient, Discharge Planning, Medication Reconciliation, Communication With Other Providers and Other Discharge Plan Discharge Items Patient Disposition: Home - Self-Care Reason For Visit: B/L PE,ACUTE ON CHRONIC LBP Discharge Diagnosis: Lumbar disc herniation with radiculopathy Bilateral pulmonary embolism Discharge Goals: Decrease discomfort, Improve disease control and Improve function Activity: Per 'Additional Instructions' section Exercise/Sports: Gradually increase as tolerated Driving/Machine Use Comment: No driving until cleared by your Surgeon/Primary Care Physician Non-emergency contact: Primary Care Provider and Surgeon Call non-emergency contact if: you have any medication questions, your symptoms worsen, your pain is not controlled, your pain is worsening, your pain is unusual for you, your pain is concerning for you, you have a fever, your wound has increased redness, your wound has increased drainage and your wound pain has increased Follow-up/Referrals: Brea Dunn PA-C [Primary Care Provider] - Diet: Heart Healthy Add Provider Instructions: Follow up with your PCP Brea Burciaga on February 26, 2019 at 10:00AM Follow up with your Orthopedic Surgeon as advised Start taking Xarelto on 02/21/19 as advised by your Surgeon. (Start taking Xarelto 15 mg twice daily for 21 days and then 20 mg once daily) Seek immediate medical attention if your symptoms reoccur or worsen Prescriptions: New polyethylene glycol 3350 [Miralax] 17 gram Powder In Packet 17 g PO DAILY PRN (Reason: Constipation) 30 Days Qty: 30 RF: 0 docusate sodium 100 mg Capsule 100 mg PO BID PRN (Reason: Constipation) 30 Days Qty: 60 RF: 0 Xarelto 15 mg tablet 15 mg PO UD 21 Days Qty: 42 RF: 0 Xarelto 20 mg tablet 20 mg PO UD Qty: 30 RF: 1 Continued atorvastatin 20 mg tablet 20 mg PO PM RF: 0 amlodipine 10 mg tablet 10 mg PO PM RF: 0 lisinopril-hydrochlorothiazide 20-25 mg tablet 1 tab PO PM RF: 0 Changed gabapentin 300 mg capsule 600 mg PO TID 30 Days Qty: 180 RF: 0 Discontinued celecoxib 200 mg capsule 200 mg PO BIDM RF: 0 prednisone 20 mg tablet 20 mg PO .TAPER DOSE RF: 0 naproxen sodium [Aleve] 220 mg Tablet 440 mg PO BID PRN (Reason: Pain) RF: 0 Stand-Alone Forms: [facility] Discharge Orders: Discharge Order (Routine); Ordered 02/20/19 Ordered By: Mayco Fletcher Admission Data Admit Date/Time: 02/08/19 15:14 Attending Provider: Mayco Fletcher Admit Provider: Man Jose Primary Care Provider: Brea Dunn. Other Providers: Rachana Ramirez ; Kimberly Waller ; Luis Enrique Stevens ; Santo Chavira ; Leno Hamm ; Nakul Muñoz ; Jeovany Abdullahi Service: Medical Other Interventions: Discharge Summary Assessment (RN) Last Done: 02/20/19 13:55 Pending Studies at Discharge: No DC Date/Time DO NOT enter until pt leaves facility: 02/20/19 15:25
[2019-02-20] MEDS ORDERED: POLYETHYLENE (MIRALAX) 17 GM PACK PO SCH (14:50)
== END 2019-02-20 15:25 | disposition home or self-care (01) | DRG 518 ==
LOC: ED 10:27 → 2W 15:14 → SUATTDRO 15:14 → 2W 16:44 → 3W 02-15 15:21